=== PATIENT | female | born 1940 | race African-American/Black ===

== ENCOUNTER 2018-05-30 21:39 | Inpatient (IN) | payer MEDICARE ==
[2018-05-30 23:33] LABS: CKMB 43.9 ng/mL (0-6.6); Troponin I 2.075 ng/mL (< 0.028)
[2018-05-31] MEDS ORDERED: Enoxaparin Sodium 60 MG/0.6 ML SYRINGE ONE (00:01)
[2018-05-31] MEDS ORDERED: Enoxaparin Sodium 30 MG/0.3 ML SYRINGE ONE (00:01)
[2018-05-31] MEDS ORDERED: Nitroglycerin 0.4 MG TAB (25 Tab Bottle) SL PRN (00:45)
[2018-05-31] MEDS ORDERED: Clopidogrel Bisulfate 300 MG TAB PO SCH (00:45)
[2018-05-31] MEDS ORDERED: Acetaminophen 325 MG TAB PO PRN (00:48)
[2018-05-31] MEDS ORDERED: Bisacodyl 5 MG TAB PO PRN (00:48)
[2018-05-31] MEDS ORDERED: Ondansetron ODT 4 MG TAB PO PRN (00:48)
[2018-05-31] MEDS ORDERED: Sodium Chloride 0.9% 1,000 ML IV SCH ×2 (01:00→09:43)
[2018-05-31 02:10] VITALS: BMI 36.0
[2018-05-31] MEDS ORDERED: Morphine 2 MG/ML SYRINGE SLOW IVP PRN ×2 (02:30→09:40)
[2018-05-31] MEDS: Amiodarone HCl 450 MG, Admixture Fee 1 EACH in Dextrose 5% in Water 250 ML IVPB SCH ×2 (03:35→12:56)
[2018-05-31 04:39] LABS: #Basophils 0.1 thou/uL (0.0-0.2); #Eosinphils 0.1 thou/uL (0.0-0.7); #Lymphocytes 2.2 thou/uL (1.20-3.40); #Monocytes 0.7 thou/uL (0.11-0.59); #Neutrophils 5.7 thou/uL (1.40-6.50); %Eosinophils 1.2 % (0.0-10.0); %Lymphocytes 24.7 % (21.0-51.0); %Monocytes 7.6 % (0.0-10.0); %Neutrophils 65.5 % (42.0-75.0); Hemoglobin 12.9 g/dL (12.0-16.0); Mean Corpuscular HGB CONC 33.6 g/dL (32.0-36.0); Mean Corpuscular Hemoglobin 32.3 pg (27.0-31.0); Mean Corpuscular Volume 96.2 fL (78.0-98.0); Mean Platelet Volume 6.7 fL (7.4-10.4); Platelet Count 264 thou/uL (130-400); RBC Distribution Width 12.3 % (11.5-14.5); White Blood Cell (WBC) Count 8.7 thou/uL (4.8-10.8)
[2018-05-31 04:57] LABS: Anion Gap 14 mmol/L (10-20); BUN (Urea Nitrogen) 24 mg/dL (9.8-20.1); Calc. Creatinine Clearance 73 mL/min (70-130); Calcium 8.7 mg/dL (7.8-10.44); Carbon Dioxide 23 mmol/L (23-31); Cardiac Risk 3.4 (Less than 4.5); Chloride 108 mmol/L (98-107); Cholesterol 178 mg/dl (< 200 Desired); Estimated GFR-MDRD 71; Glucose 109 mg/dL (83-110); HDL Cholesterol 53 mg/dL (>60 Neg Risk); LDL Cholesterol, Calculated 114 mg/dL; Potassium 3.5 mmol/L (3.5-5.1); Sodium 141 mmol/L (136-145); Triglycerides 57 mg/dL (Less than 150)
[2018-05-31 05:10] LABS: Troponin I 13.641 ng/mL (< 0.028)
[2018-05-31] MEDS ORDERED: Lidocaine 1% (PF) 30 ML VIAL ONE (08:02)
[2018-05-31] MEDS: Famotidine 20 MG TAB PO SCH ×2 (08:18→22:02)
[2018-05-31] MEDS: Lisinopril 2.5 MG TAB PO SCH (08:18)
[2018-05-31] MEDS: Metoprolol Tartrate 25 MG TAB PO SCH ×2 (08:18→22:02)
[2018-05-31] MEDS: Clopidogrel Bisulfate 75 MG TAB PO SCH (08:18)
[2018-05-31] MEDS: Enoxaparin Sodium 100 MG/ML SYRINGE SC SCH ×2 (08:19→22:01)
--- NOTE | 2018-05-31 08:37 | HP ---
CHIEF COMPLAINT: Chest pain. HISTORY OF PRESENT ILLNESS: This is a 78-year-old -Vin[place]ian with past medical history of CHF, status post pacemaker, ischemic cerebrovascular accident in 06/2015, being admitted for chest pain. Per the patient, she was going to [employer] and when patient got to the parking lot and she walked from the parking lot to the [employer], which is about 50 feet. She started having chest pain. which was pressure-like squeezing in sensation, which caused the patient to have associated symptoms of shortness of breath and patient states that once she got into the [employer]ism and she was about to take her seat in the gn[employer]. She started to have some dizziness as well and she felt like her chest pain was unbearable, so at that point, 911 was called and the patient was transferred to [place]. In [place], workup was done and patient was found to have elevated troponin. Patient was then transferred to our hospital to be further evaluated. Patient denies any vomiting, palpitation, fever, chills, abdominal pain. REVIEW OF SYSTEMS: Positive for chest pain, which is localized substernal region, shortness of breath, otherwise as documented in HPI. All other systems were reviewed and are negative. PAST MEDICAL HISTORY: CHF, status post pacemaker, cerebrovascular accident in 06/2015. PAST SURGICAL HISTORY: Status post pacemaker, stent, bilateral knee surgeries, bunionectomy bilaterally. PSYCHIATRIC HISTORY: No psych history. FAMILY HISTORY: reviewed and non-contributory SOCIAL HISTORY: Patient states that she is healthy and she has lost about 75 pounds from exercising. She lives with her . Patient denies any alcohol use, any illicit drug use, and any smoking history. ALLERGIES: Patient is allergic to TETRACYCLINE. CURRENT MEDICATIONS: Patient takes Lasix 20 mg. PHYSICAL EXAMINATION: VITAL SIGNS: Blood pressure is 106/66, pulse of 81, respiratory rate of 23, O2 sat of 98 on room air. GENERAL: Patient is alert, awake, oriented x3, not in acute distress. Patient is speaking in full sentences. HEENT: Normocephalic, atraumatic. Pupils are equally round and react to light. Extraocular movements are intact. No scleral icterus. No conjunctival pallor. Mucous membranes are moist. NECK: No JVDs. Full range of motion. Neck is supple. No tracheal deviation. LUNGS: Clear to auscultation bilaterally. No wheezing, no rales, no rhonchi is appreciated. CARDIOVASCULAR: Positive S1, S2, regular rate and rhythm. No murmurs, no gallops or rubs appreciated. ABDOMEN: Soft, nontender, nondistended, positive bowel sounds in all quadrants. No palpable masses. EXTREMITIES: Upper extremity strength 5/5 and lower extremity strength. No edema noted in the upper or lower extremities. Good pulses bilaterally in the upper and lower extremities. NEUROLOGIC: Cranial nerves II-XII grossly intact. No neurologic deficit noted. SKIN: Warm, dry, and intact. EKG showed normal sinus rhythm with a rate of 79. Patient was started on Lovenox 1 mg per kg. LABORATORY DATA: WBC is 8.7, hemoglobin is 12.9, hematocrit is 38.5, platelet count is 264. Sodium is 141, potassium is 3.5, chloride is 108, carbon dioxide of 23, anion gap of 14, BUN is 24, creatinine is 0.93, glucose is 109, CK-MB is 43.9. Troponins x3, first set is 2.075, second set is 7.570, third set is 13.641 in our hospital. Triglycerides 57, cholesterol 178, LDL is 114, HDL cholesterol is 63, heart disease risk ratio is 3.4. TSH is 4.2. Chest x-ray showed impression of cardiac silhouette that is magnified and enlarged. There is a pulmonary vasculature that is engorged with mild bilateral perihilar infiltrates mediastinum midline with a single lead left subclavian cardiac defibrillator. ASSESSMENT AND PLAN: A 78-year-old female with past medical history significant for congestive heart failure, status post pacemaker due to reduced ejection fraction, now being admitted for: 1. Chest pain, being admitted for chest pain due to Non-ST elevation myocardial infarction. Patient's troponin is currently elevated. At this point , patient has been started on aspirin, Plavix, beta blockers, full anticoagulation. Cardiology has been consulted. Patient has been made n.p.o. Patient will benefit from cardiac catheterization. At this time, we will leave management and decisions to Cardiology, we will follow up with their recommendations. Patient has been admitted to the [facility] to be monitored very closely. 2. Arrhythmias. At this time, patient is having runs of ventricular tachycardia. Cardiology has been made aware, patient has been started on amiodarone drip. We will continue to monitor the patient. 3. History of chronic systolic heart failure. We will monitor the patient closely. We will continue patient on her current management. Cardiology is on consult. We will follow up with Cardiology. 4. Deep venous thrombosis and gastrointestinal prophylaxis. We will continue Lovenox and patient is n.p.o. at this time. We will do Pepcid. MTDD
[2018-05-31] MEDS ORDERED: Potassium Chloride 20 MEQ TAB PO SCH (08:45)
[2018-05-31] MEDS ORDERED: Fentanyl 100 MCG/2 ML VIAL ONE (08:50)
[2018-05-31] MEDS ORDERED: Midazolam HCl 2 mg/2 ml Vial ONE (08:50)
--- NOTE | 2018-05-31 08:53 | CON ---
DATE OF CONSULTATION: 05/31/2018 CHIEF COMPLAINT: Chest pain. HISTORY OF PRESENT ILLNESS: Ms. Joe is a very pleasant 78-year-old -Bel[place] female who c omes to the hospital for chest pain. She was at [employer] yesterday, she felt really short-winded and h ad chest tightness, her diaphoretic tightness would not go away after sublingual nitro was taken, so she decided to come in for evaluation. She was pain free after she received a dose of morphine and n itro paste was placed on her. She had troponins drawn and they have been elevated as high as 13 now, she is pain free at the time. PAST MEDICAL HISTORY: 1. History of nonischemic cardiomyopathy with an EF of 20% in the past. 2. Status post AICD placement. 3. Status post coronary artery disease, this was diagnosed after her reduced EF. She had stent to h er LAD, which was last imaged in 2006 that was widely patent. 4. History of cerebrovascular accident in the past on chronic anticoagulation for some time, none fo r few months. 5. Obstructive sleep apnea. 6. Hypertension. 7. Hyperlipidemia. 8. Frequent PVCs. PAST SURGICAL HISTORY: 1. AICD placement. 2. Stent placement in the LAD. 3. Total knee replacement on the left and the right. 4. Lap band in 2006. OUTPATIENT MEDICATIONS: None. The patient has refused to take any medications and actually the last medicine she was on Coumadin that she has stopped this one as well. ALLERGIES: 1. VENLAFAXINE. 2. ALPRAZOLAM. 3. TETRACYCLINE. FAMILY HISTORY: Noncontributory. SOCIAL HISTORY: No alcohol, tobacco, or drugs. REVIEW OF SYSTEMS: A 12-point review of systems was done and is all negative unless stated in the hi story of present illness. PHYSICAL EXAMINATION: VITAL SIGNS: Temperature 97.1, pulse 77, respiration rate 16, satting 98% on room air, blood pressur e 153/90. GENERAL: Awake, alert, oriented x3, in no distress. HEENT: Normocephalic, atraumatic. NECK: Supple. LUNGS: Lungs are clear. CARDIOVASCULAR: S1, S2, no S3, S4, no murmurs. ABDOMEN: Soft, positive bowel sounds. EXTREMITIES: No edema. SKIN: Warm and dry. LABORATORY WORK: Reviewed. CBC with a white count of 8.7, hemoglobin 12.9, hematocrit of 38.5, plat elet count 264. Chemistry is unremarkable. Creatinine is 0.93 with a BUN of 24. Troponin went from 2 to 7.5 now 13.6. CK-MB was 43 on admission. Triglycerides of 57, cholesterol total 178, LDL of 1 14, HDL of 53. TSH was normal. EKG was reviewed. Chest x-ray was reviewed, mild CHF. She received Lasix yesterday. ASSESSMENT AND PLAN: 1. Non-ST elevation myocardial infarction. 2. Acute on chronic systolic heart failure. 3. Medication noncompliance. PLAN: I spoke with her at length about how to proceed from here if we do an invasive approach. She will require dual antiplatelet therapy for minimum of one month to a year and she has to be compliant with this. She has taken medications in the past as just that she would prefer just doing herbal med ications. I explained to her that if we were to do a heart catheterization and put in a stent, she w ill need to be at least on Plavix and aspirin. If she refused everything else, but those 2 medicines cannot come off. She tells me that she discussed it with her in front of me and they have d ecided that they do want to proceed invasively. She has had stents before. She has been through thi s in the past. She has been on antiplatelet therapies in the past and tolerated them well. She woul d like to have a drug-coated stent and we will take her Plavix and aspirin for a whole year. She und erstands and verbalized understanding of the fact that if she stopped her antiplatelet therapy, she c an from this, but she can have severe disability with a repeat heart attack and she may not come out doing too well after that. She understands, verbalized understanding of this. We will proceed w ith heart catheterization. She knows that I have explained to her the risks and benefits of the proc edures was including, but not limited to stroke, OR, , bleeding, need for blood transfusion, ferrari b loss, organ loss, stent thrombosis in case medications were to be stopped. Patient understands, ve rbalized understanding of this, agrees to proceed. Further recommendation per results of coronary an giogram.
[2018-05-31] MEDS ORDERED: Aspirin 325 mg Enteric Coated Tablet PO SCH (09:00)
[2018-05-31] MEDS ORDERED: Heparin 10,000 UNITS/1 ML VIAL ONE (09:24)
[2018-05-31] MEDS ORDERED: Clopidogrel Bisulfate 300 MG TAB ONE ×2 (09:25→09:37)
--- NOTE | 2018-05-31 11:22 | CON ---
DATE OF CONSULTATION: 05/31/2018 SERVICE: Pulmonary Medicine REASON FOR CONSULTATION: IMCU patient. HISTORY OF PRESENT ILLNESS: The patient is a 78-year-old female with past medical history significant for coronary artery disease. She presented to the hospital with palpitations, and discomfort in the chest. EKG did not demonstrate any significant ST elevation. That being said, troponins overnight have increased significantly. Whenever the patient is minimally active, she becomes pale and a little diaphoretic. She is being taken down to the wood and wood products labourer this morning. She denies any current shortness of breath, cough, fevers, chills , dysuria, or abdominal discomfort. At rest, the chest pain improved significantly. PAST MEDICAL HISTORY: 1. Nonischemic cardiomyopathy. 2. Coronary artery disease. 3. History of cerebrovascular accident. 4. Hypertension. 5. Dyslipidemia. 6. Obstructive sleep apnea. PAST SURGICAL HISTORY: 1. PCI to the LAD. 2. AICD. 3. Total knee replacement, bilateral. 4. Lap band surgery in 2006. SOCIAL HISTORY: Negative for significant alcohol, tobacco or illicit drug use. She has no exposure to chemicals, asbestos or tuberculosis. FAMILY HISTORY: Noncontributory. ALLERGIES: CIPRO, TETRACYCLINE. MEDICATIONS: List of the patient's inpatient medications were reviewed. No specific updates were made at this time. REVIEW OF SYSTEMS: General, head, ears, eyes, nose, throat, cardiovascular, respiratory, GI, , musculoskeletal, neurologic and skin is negative except as mentioned in the HPI. PHYSICAL EXAMINATION: VITAL SIGNS: Afebrile, pulse 77, blood pressure 153/90, respirations 16, saturation 98% on room air. GENERAL: The patient is awake, alert, in no apparent distress. LUNGS: Decent air entry. There are some dependent crackles present. No prolonged expiratory phase or wheezing is appreciated. HEART: Normal rate, regular. ABDOMEN: Soft, nontender, nondistended. Bowel sounds are positive. MUSCULOSKELETAL: No cyanosis or clubbing. There is no pitting in the bilateral lower extremities. NEUROLOGIC: Grossly nonfocal. LABORATORY DATA: WBC 8.7, hemoglobin 12.9, platelets 264,000. Basic metabolic profile is completely unremarkable except for potassium of 3.5. Troponin has gone from 2.07 up to 13.6. TSH falls within the normal limits. IMAGIGN: Chest x-ray demonstrates pulmonary vascular congestion, and enlarged cardiac silhouette. No overt consolidating changes are noted. ASSESSMENT: 1. Non-ST elevation myocardial infarction. 2. Acute on chronic systolic heart failure. DISCUSSION AND PLAN: The patient is going for a cardiac catheterization today. If culprit lesions is identified, hopefully will be able to intervene on it. She will remain in the IMCU until we have definitive plan in place moving forward. Pulmonary Critical Care will continue to follow in this location. 70 minutes have been devoted to this patient in various activities. I personally reviewed all imaging studies and laboratory data noted within this document. For fifty percent of this time, I was interacting with the patient at the bedside or coordinating care with the care team. For the remainder of the time I was immediately available to the patient in the hospital unit. MARLY
[2018-05-31] MEDS ORDERED: Iopamidol 370 76% 50 ML VIAL FS ONE (15:12)
[2018-05-31] MEDS ORDERED: Iopamidol 370 76% 100 ML VIAL ONE (15:12)
--- NOTE | 2018-05-31 15:56 | PDOC.PN ---
- Subjective Encounter Start Date: 05/31/18 Encounter Start Time: 11:40 -: old records requested/rev Pt seen and examined, chart reviewed in its entirety. This is my first visit with this patient. follow up for NSTEMI, S/P cath this am No F/C, no N/V/D/C, no CP, no SOB. Cath showed 100% LAD lesion, now with 2 stents, 100% open All systems reviewed and neg x as per HPI - Objective Resuscitation Status: Resuscitation Status FULL:Full Resuscitation MAR Reviewed: Yes Vital Signs & Weight: Vital Signs (12 hours) Temp Pulse Resp BP Pulse Ox 05/31/18 11:06 97.9 F 64 19 94/58 L 98 05/31/18 08:18 77 05/31/18 07:26 97.1 F L 77 16 153/90 H 98 05/31/18 04:21 98.5 F 86 21 H 122/84 97 Weight Weight 203 lb 9.6 oz I&O: 05/30/18 05/31/18 06/01/18 06:59 06:59 06:59 Intake Total 263 Balance 263 Result Diagrams: 05/31/18 04:28 05/31/18 04:28 Radiology Reviewed by me: Yes EKG Reviewed by me: Yes Dx/Plan (1) NSTEMI (non-ST elevated myocardial infarction) Code(s): I21.4 - NON-ST ELEVATION (NSTEMI) MYOCARDIAL INFARCTION Status: Acute (2) Chronic CHF Code(s): I50.9 - HEART FAILURE, UNSPECIFIED Status: Acute (3) CVD (cerebrovascular disease) Code(s): I67.9 - CEREBROVASCULAR DISEASE, UNSPECIFIED Status: Acute (4) Normally functioning cardiac pacemaker present Code(s): Z95.0 - PRESENCE OF CARDIAC PACEMAKER Status: Acute - Plan * .
[2018-05-31] MEDS: Atorvastatin Calcium 40 MG TAB PO SCH (22:02)
[2018-06-01 03:48] LABS: #Basophils 0.1 thou/uL (0.0-0.2); #Monocytes 1.2 thou/uL (0.11-0.59); #Neutrophils 11.2 thou/uL (1.40-6.50); %Basophils 0.4 % (0.0-1.0); %Eosinophils 0.2 % (0.0-10.0); %Lymphocytes 13.6 % (21.0-51.0); %Monocytes 8.1 % (0.0-10.0); %Neutrophils 77.7 % (42.0-75.0); Hemoglobin 12.9 g/dL (12.0-16.0); Mean Corpuscular HGB CONC 33.8 g/dL (32.0-36.0); Mean Corpuscular Hemoglobin 33.1 pg (27.0-31.0); Mean Platelet Volume 7.1 fL (7.4-10.4); Platelet Count 271 thou/uL (130-400); RBC Distribution Width 12.5 % (11.5-14.5); Red Blood Cell (RBC) Count 3.89 mill/uL (4.20-5.40); White Blood Cell (WBC) Count 14.4 thou/uL (4.8-10.8)
[2018-06-01 04:13] LABS: ALT (SGPT) 35 U/L (8-55); AST (SGOT) 176 U/L (5-34); Albumin 3.4 g/dL (3.4-4.8); Alkaline Phosphatase 63 U/L (40-150); Anion Gap 12 mmol/L (10-20); BUN (Urea Nitrogen) 15 mg/dL (9.8-20.1); Bilirubin, Total 1.1 mg/dL (0.2-1.2); Calc. Creatinine Clearance 80 mL/min (70-130); Calcium 8.3 mg/dL (7.8-10.44); Carbon Dioxide 18 mmol/L (23-31); Chloride 109 mmol/L (98-107); Estimated GFR-MDRD 79; Globulin 3.1 g/dL (2.4-3.5); Glucose 115 mg/dL (83-110); Magnesium 1.9 mg/dL (1.6-2.6); Potassium 4.4 mmol/L (3.5-5.1); Protein, Total 6.5 g/dL (6.0-8.3); Sodium 135 mmol/L (136-145)
[2018-06-01] MEDS: Amiodarone HCl 450 MG, Admixture Fee 1 EACH in Dextrose 5% in Water 250 ML IVPB SCH (04:32)
[2018-06-01] MEDS: Enoxaparin Sodium 100 MG/ML SYRINGE SC SCH ×2 (10:17→21:57)
[2018-06-01] MEDS: Metoprolol Tartrate 25 MG TAB PO SCH ×2 (10:18→21:54)
[2018-06-01] MEDS: Famotidine 20 MG TAB PO SCH ×2 (10:25→21:56)
[2018-06-01] MEDS: Clopidogrel Bisulfate 75 MG TAB PO SCH (10:25)
[2018-06-01] MEDS: Lisinopril 2.5 MG TAB PO SCH (10:25)
[2018-06-01] MEDS: Ondansetron PF 4 MG/2 ML Vial IVP PRN ×2 (14:41→19:58)
--- NOTE | 2018-06-01 15:30 | PRG ---
DATE OF SERVICE: 06/01/2018 SERVICE: Pulmonary Medicine. INTERVAL HISTORY: The patient is doing really well from a respiratory standpoint. He denies any current chest pain, nausea, vomiting, fevers or chills. Otherwise, she is essentially returned to her usual state of health. There has been no specific change to her condition. Nursing reports no overnight events. OBJECTIVE: VITAL SIGNS: Afebrile, pulse 69, blood pressure 107/69, respirations 18, saturation 99% on room air. GENERAL: The patient is awake, alert, no apparent distress. LUNGS: Excellent air entry. There is no prolonged expiratory phase, wheezing, rhonchi, or crackles present. HEART: Normal rate, regular. ABDOMEN: Soft, nontender, nondistended. Bowel sounds are positive. MUSCULOSKELETAL: No cyanosis or clubbing. No pitting in the bilateral lower extremities. NEUROLOGIC: Grossly nonfocal. LABORATORY DATA: WBC 14.4, hemoglobin 12.9, platelets 271,000. Sodium 135, chloride 109, bicarbonate 18. Basic metabolic profile is otherwise unremarkable. Liver function studies are normal. IMAGING: Echocardiogram demonstrates an ejection fraction of 15%-20% with ____ _ diastolic dysfunction, enlarged left atrium, and severe mitral regurgitation. ASSESSMENT: 1. Non-ST elevation myocardial infarction. 2. Acute on chronic systolic, diastolic, and valvular (severe MR) heart failure. 3. Coronary artery disease status post PCI with FLACO to LAD. DISCUSSION AND PLAN: The patient can be transitioned out of the IMCU to the telemetry unit as she is completely asymptomatic. When she lands on the floor, she will have no further requirements for inpatient Pulmonary or Critical Care opinion, and we will sign off. MARLY
--- NOTE | 2018-06-01 15:56 | PDOC.CTH ---
<Lili Rutherford - Last Filed: 06/01/18 16:18> Cardiology Progress Note - Subjective The pt seen and examined. No overnight events. No cardiac complaints. Amiodarone IV is on hold due to complaining of nausea possible 2/2 from Amiodarone. - Objective Vital Signs Temp Pulse Pulse Pulse Resp BP BP 06/01/18 11:17 97.2 F L 72 18 06/01/18 10:47 68 72 112/70 120/82 06/01/18 08:08 97.8 F 69 25 H 06/01/18 08:00 06/01/18 06:35 06/01/18 03:55 97.5 F L 64 18 BP Pulse Ox Pulse Ox Pulse Ox 06/01/18 11:17 120/82 99 06/01/18 10:47 95 98 06/01/18 08:08 107/69 98 06/01/18 08:00 98 06/01/18 06:35 95 06/01/18 03:55 105/69 95 Weight 203 lb 9.6 oz 05/31/18 06/01/18 06/02/18 06:59 06:59 06:59 Intake Total 263 1682 Balance 263 1682 - Physical Examination General/Neuro: alert & oriented x3 Neck: no JVD present Lungs: CTA Heart: RRR Abdomen: soft Extremities: other: (No edema) - Telemetry Telemetry Rhythm: SR - Labs Result Diagrams: 06/01/18 03:18 06/01/18 03:18 Troponin/CKMB CK-MB (CK-2) 43.9 ng/mL (0-6.6) H* 05/30/18 22:52 Troponin I 13.641 ng/mL (< 0.028) H* 05/31/18 04:28 - Assessment/Plan 1. NSTEMI with FLACO stent in mid RCA - On BBlocker,ANILA, Statin, Plavix, and ASA 81mg. 2. New-onset Afib - Coverted to SR since she was tx to IMCU on 05/31/18. Change Amiodarone to PO. 3. Acute on Chronic combined HF - stable with RA; 4. Ischemic CMY with hx of AICD placement 5. HTN - stable with current meds 6. Hyperlipidemia - on Statin 7. hx of CVA - 8. Sleep Apnea - MAR reviewed * If she is stable overnight, the pt may d/c home tomorrow. * Since her Afib was very short time, she will be on Plavix and ASA, but no OAC at this time. Review of Systems - Review of Systems Constitutional: reports: no symptoms reported EENTM: reports: no symptoms reported Respiratory: reports: no symptoms reported Cardiac (ROS): reports: no symptoms reported ABD/GI: reports: no symptoms reported : reports: no symptoms reported Musculoskeletal: reports: no symptoms reported <Betzaida Navas - Last Filed: 06/01/18 18:03> Cardiology Progress Note - Objective Vital Signs Temp Pulse Pulse Pulse Resp BP BP 06/01/18 16:10 98.0 F 80 20 06/01/18 11:17 97.2 F L 72 18 06/01/18 10:47 68 72 112/70 120/82 06/01/18 08:08 97.8 F 69 25 H 06/01/18 08:00 06/01/18 06:35 BP Pulse Ox Pulse Ox Pulse Ox 06/01/18 16:10 104/76 99 06/01/18 11:17 120/82 99 06/01/18 10:47 95 98 06/01/18 08:08 107/69 98 06/01/18 08:00 98 06/01/18 06:35 95 Weight 203 lb 9.6 oz 05/31/18 06/01/18 06/02/18 06:59 06:59 06:59 Intake Total 263 1682 Balance 263 1682 - Labs Result Diagrams: 06/01/18 03:18 06/01/18 03:18 Troponin/CKMB CK-MB (CK-2) 43.9 ng/mL (0-6.6) H* 05/30/18 22:52 Troponin I 13.641 ng/mL (< 0.028) H* 05/31/18 04:28 - Assessment/Plan PT. SEEN AND EVAL. BY ME. SHE HAS LESS NAUSEA AFTER THE ZOFRAN. pOSSIBLY DUE TO THE AMIODARONE. sHE IS MAINTAINING sinus rhythm. Start po amio. i agree with the A/P by the [facility]. Left arm erythema after infikltration of amiodarone. if stable plan for d/c tomorrow or monday. RRR. Chest clear.
[2018-06-01] MEDS: Amiodarone 200 MG TAB PO SCH (21:55)
[2018-06-01] MEDS: Atorvastatin Calcium 40 MG TAB PO SCH (21:56)
[2018-06-02 04:37] LABS: Hemoglobin 13.6 g/dL (12.0-16.0); Platelet Count 298 thou/uL (130-400)
[2018-06-02] MEDS ORDERED: Temazepam 15 MG CAP PO PRN (05:07)
[2018-06-02] MEDS ORDERED: Temazepam 15 MG CAP PO SCH (05:15)
--- NOTE | 2018-06-02 07:09 | PDOC.EVN ---
Event Note - Event Note Event Note: I was called to evaluate patient who is having dyspnea. Patient has been admitted for NSTEMI. On evaluation patient is lying in bed sating 98 on NC but appears to be very anxious. Patient states that she is restless and cannot sleep. Resp: CTA bilaterally, no wheezing or rales. Chest: WNL Vital signs: WNL Assessment and plan: Dyspnea 2/2 anxiety. I have ordered restoril to help patient sleep. will continue to monitor the patient closely.
--- NOTE | 2018-06-02 08:22 | EKG ---
Test Reason : Blood Pressure : / mmHG Vent. Rate : 090 BPM Atrial Rate : 090 BPM P-R Int : 150 ms QRS Dur : 094 ms QT Int : 356 ms P-R-T Axes : 062 -01 083 degrees QTc Int : 435 ms Normal sinus rhythm Cannot rule out Anterior infarct , age undetermined Abnormal ECG No previous ECGs available Confirmed by KRIS BAÑUELOS ([id number]) on 06/02/2018 8:22:39 AM Referred By: Confirmed By:KRIS BAÑUELOS
[2018-06-02] MEDS: Amiodarone 200 MG TAB PO SCH ×2 (09:11→20:55)
[2018-06-02] MEDS: Clopidogrel Bisulfate 75 MG TAB PO SCH (09:11)
[2018-06-02] MEDS: Enoxaparin Sodium 100 MG/ML SYRINGE SC SCH ×2 (09:12→20:54)
[2018-06-02] MEDS: Metoprolol Tartrate 25 MG TAB PO SCH ×2 (09:14→20:55)
[2018-06-02] MEDS: Famotidine 20 MG TAB PO SCH ×2 (09:14→20:56)
[2018-06-02] MEDS: Lisinopril 2.5 MG TAB PO SCH (09:15)
--- NOTE | 2018-06-02 11:16 | PDOC.PN ---
- Subjective Encounter Start Date: 06/01/18 Encounter Start Time: 09:40 Folllow up for NSTEMUI, 100% LAD occlusion, S/P PTCA and PCI with 2 FLACO Pt did well overnight, no F/c, no N/V/D/C. Pts daughter from [place] in room, aobut to head home. No CP or SOB, getting up around the room, no orthopnea or SOLORZANO all systems reviewed and neg x as above - Objective Resuscitation Status: Resuscitation Status FULL:Full Resuscitation MAR Reviewed: Yes Vital Signs & Weight: Vital Signs (12 hours) Temp Pulse Resp BP Pulse Ox 06/02/18 07:46 97.3 F L 70 25 H 107/58 L 100 06/02/18 04:39 97.0 F L 75 17 115/78 100 06/02/18 00:28 97.1 F L 88 18 107/62 96 Weight Weight 203 lb 9.6 oz I&O: 06/01/18 06/02/18 06/03/18 06:59 06:59 06:59 Intake Total 1682 350 Balance 1682 350 Result Diagrams: 06/02/18 04:09 06/02/18 04:09 Radiology Reviewed by me: Yes Phys Exam - Physical Examination Constitutional: NAD HEENT: PERRLA, moist MMs, sclera anicteric, oral pharynx no lesions Neck: no nodes, no JVD, supple, full ROM Respiratory: no wheezing, no rales, no rhonchi, clear to auscultation bilateral Cardiovascular: RRR, no significant murmur, no rub Gastrointestinal: soft, non-tender, no distention, positive bowel sounds Musculoskeletal: no edema Neurological: non-focal, normal sensation, moves all 4 limbs Lymphatic: no nodes Psychiatric: normal affect, A&O x 3 Skin: no rash, normal turgor, cap refill <2 seconds Dx/Plan (1) NSTEMI (non-ST elevated myocardial infarction) Code(s): I21.4 - NON-ST ELEVATION (NSTEMI) MYOCARDIAL INFARCTION Status: Acute (2) Chronic CHF Code(s): I50.9 - HEART FAILURE, UNSPECIFIED Status: Chronic Qualifiers: Heart failure type: combined systolic and diastolic Qualified Code(s): I50.42 - Chronic combined systolic (congestive) and diastolic (congestive) heart failure (3) CVD (cerebrovascular disease) Code(s): I67.9 - CEREBROVASCULAR DISEASE, UNSPECIFIED Status: Chronic (4) Normally functioning cardiac pacemaker present Code(s): Z95.0 - PRESENCE OF CARDIAC PACEMAKER Status: Chronic (5) Ischemic cardiomyopathy Code(s): I25.5 - ISCHEMIC CARDIOMYOPATHY Status: Acute Comment: EF 10-15% now, AICD already in place - Plan cont current plan of care, out of bed/ambulate * . follow up on cardiology recs
[2018-06-02] MEDS ORDERED: Fleet Enema 133 ML BOT PR SCH (16:00)
[2018-06-02] MEDS: Polyethylene Glycol 3350 17 GM Packet PO SCH (20:55)
[2018-06-02] MEDS: Atorvastatin Calcium 40 MG TAB PO SCH (20:56)
[2018-06-03] MEDS ORDERED: ALPRAZolam 0.25 MG TAB PO SCH (00:45)
[2018-06-03] MEDS ORDERED: Melatonin 3 MG TAB PO SCH (00:45)
[2018-06-03] MEDS: Clopidogrel Bisulfate 75 MG TAB PO SCH (08:18)
[2018-06-03] MEDS: Amiodarone 200 MG TAB PO SCH ×2 (08:18→21:21)
[2018-06-03] MEDS: Enoxaparin Sodium 100 MG/ML SYRINGE SC SCH ×2 (08:18→21:24)
[2018-06-03] MEDS: Lisinopril 2.5 MG TAB PO SCH (08:20)
[2018-06-03] MEDS: Metoprolol Tartrate 25 MG TAB PO SCH ×2 (08:20→21:24)
[2018-06-03] MEDS: Famotidine 20 MG TAB PO SCH ×2 (08:20→21:24)
[2018-06-03] MEDS: Polyethylene Glycol 3350 17 GM Packet PO SCH ×2 (08:21→21:25)
[2018-06-03 11:25] LABS: Anion Gap 13 mmol/L (10-20); BUN (Urea Nitrogen) 29 mg/dL (9.8-20.1); Calc. Creatinine Clearance 53 mL/min (70-130); Calcium 8.5 mg/dL (7.8-10.44); Carbon Dioxide 19 mmol/L (23-31); Chloride 106 mmol/L (98-107); Estimated GFR-MDRD 48; Glucose 172 mg/dL (83-110); Potassium 4.1 mmol/L (3.5-5.1); Sodium 134 mmol/L (136-145)
--- NOTE | 2018-06-03 14:16 | PRG ---
DATE OF SERVICE: 06/03/2018 SUBJECTIVE: She is doing better. She is less short of breath. OBJECTIVE: VITAL SIGNS: Sats on room air, respiration 16, temperature 97, blood pressure 108/69. CHEST: No wheezing and no crackles. CARDIAC: Normal S1, S2, no gallops. LABORATORY DATA: Creatinine 1.2. ASSESSMENT: Congestive heart failure and azotemia. PLAN: Continue cardiac care. Pulmonary will follow at a distance.
--- NOTE | 2018-06-03 14:24 | PDOC.PN ---
- Subjective Encounter Start Date: 06/03/18 Encounter Start Time: 12:20 pt not feeling well. another panic attack overnight. no BM yet, no F/C, no n/V /d/c All systems reviewed and neg x as above pt [facility] - Objective Resuscitation Status: Resuscitation Status FULL:Full Resuscitation MAR Reviewed: Yes Vital Signs & Weight: Vital Signs (12 hours) Temp Pulse Resp BP Pulse Ox 06/03/18 11:34 97.4 F L 67 16 108/69 95 06/03/18 08:20 64 06/03/18 08:13 98.4 F 64 16 112/58 L 94 L 06/03/18 05:34 94 L 06/03/18 03:06 97.8 F 61 20 105/58 L 94 L Weight Weight 207 lb I&O: 06/02/18 06/03/18 06/04/18 06:59 06:59 06:59 Intake Total 350 480 Balance 350 480 Result Diagrams: 06/02/18 04:09 06/03/18 10:53 Phys Exam - Physical Examination Constitutional: NAD HEENT: PERRLA, moist MMs, sclera anicteric, oral pharynx no lesions Neck: no nodes, no JVD, supple, full ROM Respiratory: no wheezing, no rales, no rhonchi, clear to auscultation bilateral Cardiovascular: RRR, no significant murmur Gastrointestinal: soft, non-tender, no distention, positive bowel sounds Musculoskeletal: no edema Neurological: non-focal, normal sensation, moves all 4 limbs Lymphatic: no nodes Psychiatric: normal affect, A&O x 3 Skin: no rash, normal turgor, cap refill <2 seconds Dx/Plan (1) NSTEMI (non-ST elevated myocardial infarction) Code(s): I21.4 - NON-ST ELEVATION (NSTEMI) MYOCARDIAL INFARCTION Status: Resolved (2) Chronic CHF Code(s): I50.9 - HEART FAILURE, UNSPECIFIED Status: Chronic Qualifiers: Heart failure type: combined systolic and diastolic Qualified Code(s): I50.42 - Chronic combined systolic (congestive) and diastolic (congestive) heart failure (3) CVD (cerebrovascular disease) Code(s): I67.9 - CEREBROVASCULAR DISEASE, UNSPECIFIED Status: Chronic (4) Normally functioning cardiac pacemaker present Code(s): Z95.0 - PRESENCE OF CARDIAC PACEMAKER Status: Chronic (5) Ischemic cardiomyopathy Code(s): I25.5 - ISCHEMIC CARDIOMYOPATHY Status: Chronic Comment: EF 10-15% now, AICD already in place - Plan cont current plan of care, PT/OT, health care social worker, out of bed/ambulate * . miralax BID until she has a BM, hopefully ready for tomorrow discharge
--- NOTE | 2018-06-03 15:10 | PDOC.CTH ---
<Lili Rutherford - Last Filed: 06/03/18 15:08> Cardiology Progress Note - Subjective The pt seen and examined. No overnight events. She complains of worsening of SOB, fatigue. She also complains of anxiety last night. - Objective Vital Signs Temp Pulse Resp BP Pulse Ox 06/03/18 11:34 97.4 F L 67 16 108/69 95 06/03/18 08:20 64 06/03/18 08:13 98.4 F 64 16 112/58 L 94 L 06/03/18 05:34 94 L Weight 207 lb 06/02/18 06/03/18 06/04/18 06:59 06:59 06:59 Intake Total 350 480 Balance 350 480 - Physical Examination General/Neuro: alert & oriented x3 Neck: no JVD present Lungs: CTA (diminished at bases) Heart: RRR Abdomen: soft Extremities: other: (No edema) - Telemetry Telemetry Rhythm: SR 60s - Labs Result Diagrams: 06/02/18 04:09 06/03/18 10:53 Troponin/CKMB CK-MB (CK-2) 43.9 ng/mL (0-6.6) H* 05/30/18 22:52 Troponin I 13.641 ng/mL (< 0.028) H* 05/31/18 04:28 - Assessment/Plan 1. NSTEMI with FLACO stent in mid RCA on 05/31/18 - On BBlocker, ANILA, Statin, Plavix, and ASA 81mg. 2. New-onset Afib - Converted to SR since she was tx to IMCU on 05/31/18. Stop Amiodarone PO due to nausea, fatigue and SOB possible 2/2 Amiodarone. 3. Acute on Chronic combined HF - stable with RA; Lasix 20mg IV x 1 today and resume lasix 20mg PO qd from tomorrow. 4. Ischemic CMY with hx of AICD placement 5. HTN - stable with current meds 6. Hyperlipidemia - on Statin 7. hx of CVA - 8. Sleep Apnea - MAR reviewed * Since her Afib was very short time, she will be on Plavix and ASA, but no OAC at this time. Review of Systems - Review of Systems Constitutional: reports: weakness EENTM: reports: no symptoms reported Respiratory: reports: no symptoms reported Cardiac (ROS): reports: no symptoms reported ABD/GI: reports: no symptoms reported : reports: no symptoms reported Musculoskeletal: reports: no symptoms reported Skin: reports: no symptoms reported <Betzaida Navas - Last Filed: 06/03/18 22:13> Cardiology Progress Note - Objective Vital Signs Temp Pulse Resp BP Pulse Ox 06/03/18 20:32 99 06/03/18 20:31 98 F 63 16 118/60 99 06/03/18 16:05 97.1 F L 76 18 105/67 99 06/03/18 11:34 97.4 F L 67 16 108/69 95 Weight 207 lb 06/02/18 06/03/18 06/04/18 06:59 06:59 06:59 Intake Total 350 480 720 Balance 350 480 720 - Labs Result Diagrams: 06/02/18 04:09 06/03/18 10:53 Troponin/CKMB CK-MB (CK-2) 43.9 ng/mL (0-6.6) H* 05/30/18 22:52 Troponin I 13.641 ng/mL (< 0.028) H* 05/31/18 04:28 - Assessment/Plan Pt. seen and evaluated by me. I agree with the A/P by the [employer]AURANT MANAGER. We have discussed the pt. and the plan.Chest clear RRR.
[2018-06-03] MEDS ORDERED: Furosemide 20 MG/2 ML VIAL SLOW IVP SCH (15:15)
[2018-06-03] MEDS: Atorvastatin Calcium 40 MG TAB PO SCH (21:23)
[2018-06-04 05:30] LABS: Platelet Count 255 thou/uL (130-400)
--- NOTE | 2018-06-04 07:37 | PRG ---
DATE OF SERVICE: 06/02/2018 SUBJECTIVE: She is doing much better. She is less short of breath, less coughing and wheezing. OBJECTIVE: VITAL SIGNS: Sats are 99% on room air, respiration 25, temperature 97, blood pressure 107/58. CHEST: No wheezing, no crackle. CARDIAC: Normal S1-S2. No gallops. ABDOMEN: Soft. No masses. IMPRESSION: 1. Congestive cardiomyopathy. 2. Respiratory failure, improved. 3. Mild azotemia. PLAN: Patient can be transitioned out of the MICU. Pulmonary will follow at a distance.
[2018-06-04] MEDS ORDERED: Furosemide 20 MG TAB PO SCH (09:00)
[2018-06-04] MEDS: Clopidogrel Bisulfate 75 MG TAB PO SCH (10:07)
[2018-06-04] MEDS: Metoprolol Tartrate 25 MG TAB PO SCH (10:07)
[2018-06-04] MEDS: Famotidine 20 MG TAB PO SCH (10:07)
[2018-06-04] MEDS: Enoxaparin Sodium 100 MG/ML SYRINGE SC SCH (10:08)
[2018-06-04] MEDS: Lisinopril 2.5 MG TAB PO SCH (10:08)
[2018-06-04] MEDS: Polyethylene Glycol 3350 17 GM Packet PO SCH (10:09)
[2018-06-04] MEDS: Amiodarone 200 MG TAB PO SCH (10:58)
--- NOTE | 2018-06-04 12:30 | PDOC.CTH ---
Cardiology Progress Note - Subjective She is doing well. She continues to refuse all medications and even lasix she only wants is as needed and does not want the daily dose scheduled. She is willing to take the Plavix for the next year. - Objective Vital Signs Temp Pulse Resp BP BP Pulse Ox 06/04/18 10:08 70 06/04/18 09:45 97.9 F 67 20 113/87 96 06/04/18 05:00 100 06/04/18 04:40 97.4 F L 70 16 108/67 100 Weight 204 lb 6 oz 06/03/18 06/04/18 06/05/18 06:59 06:59 06:59 Intake Total 480 720 360 Balance 480 720 360 - Physical Examination General/Neuro: alert & oriented x3, NAD Neck: no JVD present Lungs: CTA, unlabored respirations Heart: RRR Abdomen: NT/ND Extremities: other: (no edema) - Telemetry Telemetry Rhythm: NSR - Labs Result Diagrams: 06/04/18 04:35 06/04/18 04:35 Troponin/CKMB CK-MB (CK-2) 43.9 ng/mL (0-6.6) H* 05/30/18 22:52 Troponin I 13.641 ng/mL (< 0.028) H* 05/31/18 04:28 - Assessment/Plan 1. NSTEMI 2. S/P FLACO to LD. 3. Medication non compliance. 4. Ischemic CM, EF at 15-20% 5. Presence of an AICD. 6. Proxysmal afib PLAN: - Continue Plavix and [id number] daily which she is willing to take and she and her fully understand that not taking this medication in the next year may cause her demise, She states she is taking it for a year. She understands and verbalizes understanding of this. - We had a long conversation about CHF and fluid balance. She will weigh herself daily and will fluid restrict to 1800 ml daily. - She is stable for discharge today. She is refusing any other medications including ACEI or BB, or amiodarone or blood thinners for stroke prophylaxis. She ius only wiling to use lasix PRN and Plavix and aspirin. - Follow up in 1 month.
--- NOTE | 2018-06-04 12:47 | DIS ---
DATE OF ADMISSION: 05/31/2018 DATE OF DISCHARGE: 06/04/2018 DISCHARGE DIAGNOSES: 1. Non-ST elevation myocardial infarction, status post drug eluting stent to the mid RCA x2, 05/31/2018. 2. Paroxysmal atrial fibrillation with conversion to sinus rhythm, stable. 3. Acute on chronic combined congestive heart failure with ejection fraction of 10-15%, stable. 4. Ischemic cardiomyopathy with ejection fraction of 10-15%, status post AICD. 5. Hypertension, stable. 6. Hyperlipidemia. CONSULTATIONS: Dr. Laughlin and Dr. Navas with Cardiology Service. Dr. Fontanez with Pulmonology Service. PERTINENT LABORATORY AND X-RAY FINDINGS: Creatinine ranged between 0.84-1.29, estimated GFR ranged between 48-79, magnesium 1.9, AST ranged between 31-176, ALT ranged between 20-35, total cholesterol 178, triglycerides 57, HDL 53, LDL 114. TSH 4.21. CBC showed a white blood cell count ranging between 8.7-14.4, hemoglobin ranged between 12.9-13.6. A 2D transthoracic echocardiogram dated showed ejection fraction of 15-20%. Grade III/III diastolic dysfunction. Biatrial enlargement. Severe mitral valve regurgitation. Moderate tricuspid regurgitation. Right ventricular systolic pressure of 75 mmHg. HOSPITAL COURSE: Patient was initially admitted to the telemetry unit after presenting with chest pain with associated non-ST elevation myocardial infarction. Troponin I ranged between 2.1-13.6 and patient was evaluated by the Cardiology Service taken for left heart catheterization on 05/31/2018. The patient was noted with occlusion of the mid LAD, undergoing balloon angioplasty x3 as well as PCI with drug-eluting stent placement x2 to the mid right coronary artery. The patient was continued on dual antiplatelet therapy and monitored clinically. The patient continued on Lipitor, beta blockers and ANILA inhibitors throughout the hospital course. The patient was noted postoperatively with paroxysmal atrial fibrillation converting to sinus mechanism in less than 24 hours. The patient was initially placed on amiodarone and converted to amiodarone orally and continued on Lovenox 90 mg b.i.d. Due to short duration of the atrial fibrillation and complications with amiodarone including nausea, the patient was discontinued on amiodarone with recommendations to continue beta mitra therapy as well as dual antiplatelet therapy and no oral anticoagulation. Current telemetry monitoring shows a sinus mechanism with heart rates in the 60s. The patient overall remained clinically stable, status post cardiac stent placement and telemetry monitoring showed a persistent sinus mechanism without recurrence of atrial fibrillation. I examined the patient at the time of discharge and discussed followup instructions. The patient verbalized understanding and in agreement for discharge on 06/04/2018. DISCHARGE MEDICATIONS: 1. Lasix 20 mg p.o. daily. 2. Enteric-coated aspirin 81 mg p.o. daily. 3. Lipitor 40 mg p.o. at bedtime. 4. Plavix 75 mg p.o. daily. 5. Lisinopril 2.5 mg p.o. daily. 6. Toprol-XL 25 mg p.o. daily. 7. Nitroglycerin 0.4 mg sublingually every 5 minutes p.r.n. chest pain. 8. Restoril 15 mg p.o. at bedtime p.r.n. FOLLOWUP: The patient will follow up with her primary care provider, Dr. Liss Barrientos, within 7 days of discharge. The patient will follow up with Dr. Redd Laughlin with [facility] and to call his office for appointment time and date. CONDITION ON DISCHARGE: Stable. ACTIVITY: Ad trudy. SPECIAL INSTRUCTIONS: Follow up with outpatient cardiac rehabilitation on 06/14 at 2:00 p.m. DIET: Heart healthy. CODE STATUS: Full. DISPOSITION: Home, 06/04/2018. Total time of discharge, 35 minutes. MTDD
[2018-06-04 12:48] VITALS: BP 115/72; TEMP 97.7
--- NOTE | 2018-06-09 12:03 | EKG ---
Test Reason : CHEST PAIN Blood Pressure : / mmHG Vent. Rate : 079 BPM Atrial Rate : 079 BPM P-R Int : 138 ms QRS Dur : 094 ms QT Int : 396 ms P-R-T Axes : 049 -07 032 degrees QTc Int : 454 ms Normal sinus rhythm Nonspecific T wave abnormality Abnormal ECG Confirmed by ALFRED MATHEW MD ([id number]), graphic editor MIGUEL JOSEPH ([id number]) on 06/09/2018 12:03:27 PM Referred By: Confirmed By:ALFRED MATHEW MD
--- NOTE | 2018-06-09 12:04 | EKG ---
Test Reason : Blood Pressure : / mmHG Vent. Rate : 076 BPM Atrial Rate : 076 BPM P-R Int : 148 ms QRS Dur : 092 ms QT Int : 412 ms P-R-T Axes : 054 -04 086 degrees QTc Int : 463 ms Normal sinus rhythm Nonspecific T wave abnormality Abnormal ECG Confirmed by QUINCY DUBON, ALFRED ([id number]), video editor MIGUEL JOSEPH ([id number]) on 06/09/2018 12:03:33 PM Referred By: Confirmed By:ALFRED MATHEW MD
== END 2018-06-04 15:00 | disposition home or self-care (01) | DRG 246 ==
LOC: ERS 21:39 → IMCU/EMU 05-31 01:33 → 2NO 06-02 17:13
PROVIDERS: ADMIT Internal Medicine; ATTEND Internal Medicine
PROC: 027035Z Dilation of Coronary Artery, One Artery with Two Drug-eluting Intraluminal Devices, Percutaneous Approach (ICD-10-PCS; principal; 2018-05-31)
PROC: 4A023N7 Measurement of Cardiac Sampling and Pressure, Left Heart, Percutaneous Approach (ICD-10-PCS; 2018-05-31)
PROC: B2111ZZ Fluoroscopy of Multiple Coronary Arteries using Low Osmolar Contrast (ICD-10-PCS; 2018-05-31)
PROC: B2151ZZ Fluoroscopy of Left Heart using Low Osmolar Contrast (ICD-10-PCS; 2018-05-31)
DX: I21.4 Non-ST elevation (NSTEMI) myocardial infarction (principal); I50.23 Acute on chronic systolic (congestive) heart failure; I47.2 Ventricular tachycardia; Z86.73 Personal history of transient ischemic attack (TIA), and cerebral infarction without residual deficits; I25.10 Atherosclerotic heart disease of native coronary artery without angina pectoris; M19.90 Unspecified osteoarthritis, unspecified site; E78.5 Hyperlipidemia, unspecified; Z91.14 Patient's other noncompliance with medication regimen; I25.2 Old myocardial infarction; Z88.8 Allergy status to other drugs, medicaments and biological substances; Z79.899 Other long term (current) drug therapy; R79.89 Other specified abnormal findings of blood chemistry; I48.0 Paroxysmal atrial fibrillation; I25.5 Ischemic cardiomyopathy; G47.33 Obstructive sleep apnea (adult) (pediatric); Z96.653 Presence of artificial knee joint, bilateral; Z95.810 Presence of automatic (implantable) cardiac defibrillator; Z88.1 Allergy status to other antibiotic agents
CPT/HCPCS: 36415; 80048; 80053; 80061; 82565; 83735; 84443; 84484; 85014; 85018; 85025; 85049; 85347; 92928; 93005; 93010; 93306; 93458; 93798; 96372; 99152; 99153; C1760; C1769; C1874; C9600; J0282; J1644; J1650; J1940; J2001; J2250; J2270; J2405; J3010; J7070; Q0162

== ENCOUNTER 2018-06-09 01:05 | Observation (INO) | payer MEDICARE ==
[2018-06-09 02:38] LABS: CKMB 2.1 ng/mL (0-6.6)
[2018-06-09 02:41] LABS: Troponin I 0.485 ng/mL (< 0.028)
[2018-06-09 05:17] LABS: Critical Call Chem Troponin I RESULT DECREASING; Troponin I 0.475 ng/mL (< 0.028)
[2018-06-09 05:53] VITALS: BMI 37.3
[2018-06-09] MEDS ORDERED: Sodium Chloride 0.65% Nasal 44 ML BOT EA NARE PRN (07:31)
[2018-06-09] MEDS ORDERED: Zolpidem Tartrate 5 MG TAB PO PRN (07:31)
[2018-06-09] MEDS ORDERED: Nitroglycerin 0.4 MG TAB (25 Tab Bottle) SL PRN (07:31)
[2018-06-09] MEDS ORDERED: Ondansetron PF 4 MG/2 ML Vial IVP PRN (07:31)
[2018-06-09] MEDS ORDERED: Temazepam 15 MG CAP PO PRN (07:31)
[2018-06-09] MEDS ORDERED: Calcium Carbonate 500 MG ChewTAB PO PRN (07:31)
[2018-06-09] MEDS ORDERED: Senokot S 8.6-50 MG TAB PO PRN (07:31)
[2018-06-09] MEDS ORDERED: Eucerin (Mineral Oil/Petrolatum,White) 30 gm Jar TOP PRN (07:31)
[2018-06-09] MEDS ORDERED: Bisacodyl 5 MG TAB PO PRN (07:31)
[2018-06-09] MEDS ORDERED: Loratadine 10 MG TAB PO PRN (07:31)
[2018-06-09] MEDS ORDERED: HYDROcodone/Acetaminophen 5/325 mg Tablet PO PRN (07:31)
[2018-06-09] MEDS ORDERED: hydrALAZINE 20 MG/ML VIAL SLOW IVP PRN (07:31)
[2018-06-09] MEDS ORDERED: Ondansetron ODT 4 MG TAB PO PRN (07:31)
[2018-06-09] MEDS ORDERED: Artificial Tear Sol 15 ML BOT EA EYE PRN (07:31)
[2018-06-09] MEDS ORDERED: Loperamide HCl 2 MG CAP PO PRN (07:31)
[2018-06-09] MEDS ORDERED: Acetaminophen 325 MG TAB PO PRN (07:31)
[2018-06-09] MEDS ORDERED: Diabetic Tussin 200 MG/10 ML UDCUP PO PRN (07:31)
[2018-06-09] MEDS ORDERED: Bisacodyl 10 MG SUPP PR PRN (07:31)
[2018-06-09] MEDS ORDERED: Cepastat Lozenges 1 LOZ PO PRN (07:31)
[2018-06-09 08:39] LABS: Troponin I 0.406 ng/mL (< 0.028)
[2018-06-09] MEDS: Enoxaparin Sodium 40 MG/0.4 ML SYRINGE SC SCH (08:58)
[2018-06-09] MEDS: Clopidogrel Bisulfate 75 MG TAB PO SCH (08:59)
[2018-06-09] MEDS: Famotidine 20 MG TAB PO SCH (08:59)
[2018-06-09] MEDS ORDERED: Lisinopril 2.5 MG TAB PO SCH (09:00)
[2018-06-09 09:01] LABS: CRP (Inflammatory) 2.95 mg/dL (= or < 0.5); Uric Acid 7.2 mg/dL (2.6-6.0)
--- NOTE | 2018-06-09 09:12 | ULT ---
PRELIMINARY REPORT/[facility]/EMERGENTY AFTER-HOURS PROCEDURE US Left Duplex Lower Extremity Veins, Limited EXAM DATE/TIME: 06/09/2018 1:34 AM CLINICAL HISTORY: 78 years old, female; Pain; Other: Lle pain, swelling, SHORTNESS OF BREATH TECHNIQUE: Real-time Duplex ultrasound of the Left Lower Extremity with 2-D sun scale, color Doppler flow and s pectral waveform analysis. Limited exam focused on the left lower extremity veins. COMPARISON: No relevant prior studies available. FINDINGS: Left deep veins: Unremarkable. The common femoral, femoral and popliteal veins are patent without thr ombus. Normal compressibility, augmentation response and Doppler waveforms. Left superficial veins: Unremarkable. Saphenofemoral junction is patent without thrombus. Soft tissues: Unremarkable. IMPRESSION: No acute findings. No evidence of deep vein thrombosis. Thank you for allowing us to participate in the care of your patient. Dictated and Authenticated by: Modesta Jimenez MD 06/09/2018 5:22 AM Central Time ([place] & [place]) FINAL REPORT LEFT LOWER EXTREMITY VENOUS DUPLEX EXAM: FINDINGS: The veins of the left lower extremity were evaluated with color doppler and spectral analysis. No evidence of DVT. I am in agreement with the preliminary report. Code QA POS: [facility]
[2018-06-09] MEDS ORDERED: Colchicine 0.6 MG TAB PO SCH (10:30)
--- NOTE | 2018-06-09 11:26 | HP ---
PRIMARY CARE PHYSICIAN: Dr. Liss Barrientos. REASON FOR ADMISSION: Left foot pain, CHF exacerbation. HISTORY OF PRESENT ILLNESS: A 78-year-old female who has chronic ischemic cardiomyopathy and based o n last echocardiography on 05/31/2018, her EF is 15%-20%. She also has associated diastolic dysfunct ion, severe mitral regurgitation and moderate tricuspid regurgitation as well as pulmonary hypertensi on. She was recently admitted on 05/31/2018 with chest pain and she had non-ST elevation MS. The pa kimberly had a cardiac catheterization done by Dr. Laughlin and the patient had drug-eluting stent placed in mid RCA as well as another stent was placed in RCA. During that admission, the patient was evalua jonas by cardiopulmonary group. The patient was discharged home with Lasix on 06/04/2018. After discharge, the patient was doing relatively well. She was taking all her medication as per pre scription. She did not miss any medications. She was not having any recurrent chest pain. The jenniffer ent initially went to [facility] with increasing shortness of breath. The patient w as also having left foot pain. The patient did not have any classic orthopnea, PND or pitting edema. She had elevated BNP and the patient was given Lasix 20 mg x2 and aspirin 324 mg and nitropatch at [facility]. Her chest x-ray did show pulmonary vascular congestion. After IV Lasix , the patient made significant urine and the patient was feeling much better when she transferred to our emergency room. The patient also reported that before going to [facility], she also took her oral Lasix at home. This time, she did not have any chest pain, but her troponin is st ill elevated from previous. The patient also reports that she has left foot pain in the mid foot region, which is sharp, getting worse with touch and the area is getting swollen with surrounding erythema and hypersensitivity with the skin. She denies any fever or chills. She denies any trauma. She denies any similar problem in past. She denies any UTI symptoms. She denies any PND, orthopnea, syncope, palpitations. She does have a long history of CHF and that is why she has AICD in place. She is not taking lisinop ril, because the patient's multiple family member had a reaction with angioedema. PAST MEDICAL HISTORY: Ischemic cardiomyopathy, severe mitral regurgitation, moderate tricuspid regur gitation, pulmonary hypertension, coronary artery disease with recent stenting x2 with drug-eluting s tent, history of CVA in 2015, hypertension, dyslipidemia. PAST SURGICAL HISTORY: AICD with pacemaker placement, bilateral knee surgery, cardiac catheterizatio n with stent placement, bunionectomy. PAST PSYCHIATRIC HISTORY: Reviewed and negative. FAMILY HISTORY: Positive for angioedema with lisinopril. Multiple family members has heart problems , hypertension. No strong family history of cancer. SOCIAL HISTORY: The patient is and lives at home with her . Her is currently present. No history of tobacco, alcohol or illicit drug abuse. ALLERGIES: Patient is allergic to TETRACYCLINE, CIPROFLOXACIN. The patient is not really allergic t o LISINOPRIL, but she does not want to take lisinopril because multiple family members has side effec ts with the lisinopril. CURRENT HOME MEDICATION: Lasix 20 mg p.o. daily, aspirin 81 mg p.o. daily, Lipitor 40 mg p.o. at bed time, Plavix 75 mg p.o. daily, Toprol-XL 25 mg p.o. daily, Restoril 15 mg p.o. at bedtime p.r.n. EMERGENCY ROOM COURSE: At [facility], the patient was given Lasix 20 mg x2, nitropa tch, aspirin. REVIEW OF SYSTEMS: The following complete review of systems was negative, unless otherwise mentioned in the HPI or below: Constitutional: Weight loss or gain, ability to conduct usual activities. Skin: Rash, itching. Eyes: Double vision, pain. ENT/Mouth: Nose bleeding, neck stiffness, pain, tenderness. Cardiovascular: Palpitations, dyspnea on exertion, orthopnea. Respiratory: Shortness of breath, wheezing, cough, hemoptysis, fever or night sweats. Gastrointestinal: Poor appetite, abdominal pain, heartburn, nausea, vomiting, constipation, or diarr hea. Genitourinary: Urgency, frequency, dysuria, nocturia. Musculoskeletal: Pain, swelling. Neurologic/Psychiatric: Anxiety, depression. Allergy/Immunologic: Skin rash, bleeding tendency. Please see my HPI for pertinent positive and negative. All other review of systems reviewed and nega tive except as mentioned in the HPI. PHYSICAL EXAMINATION: VITAL SIGNS: On arrival to our emergency room, blood pressure 95/67, pulse 88, respiratory rate 23, temperature 97.6, saturation 99% on room air, weight 92.5 kilograms. GENERAL: The patient is currently alert, awake, no obvious acute distress. HEENT: Head: Normocephalic, atraumatic. Eyes: Pupils round, reactive to light. Extraocular muscl e intact. ENT: Oropharynx within normal limits. Moist mucous membranes. No oral lesion, no pharyn geal erythema, no exudate. NECK: Supple, no JVD, no thyromegaly, no carotid bruit, no jugular venous distention. LUNGS: Few basilar rales noted. No wheeze, no rhonchi, no accessory muscles of respiration in use. CARDIAC: S1, S2 regular. Systolic murmur present at apex and lower left sternal border. No gallop, no rub. ABDOMEN: Soft, bowel sounds present, nontender, nondistended. No organomegaly, no mass, no suprapub ic tenderness. BACK: Unremarkable, no CVA tenderness. EXTREMITIES: Upper extremity, passive movement of all joints are normal. Lower extremity, trace low er extremity edema noted. The patient's left foot has hypersensitive skin with erythema, warmth, and tenderness noted. Good distal pulsation. SKIN: No skin rash other than mild erythema over left foot. PSYCHIATRIC: Normal affect. NEUROLOGIC: Nonfocal examination. ASSESSMENT: 1. Acute on chronic combined systolic and diastolic heart failure. 2. Left foot pain, suspecting from acute gout attack. 3. Multivessel coronary artery disease, required stenting recently. 4. Elevated troponin likely downtrending from previous and recent non-ST elevation myocardial infarc tion. 5. History of ischemic cardiomyopathy with AICD with pacemaker with EF 15% -20% on optimum medical t herapy. 6. Moderate tricuspid regurgitation, severe mitral regurgitation and pulmonary hypertension based on previous echocardiography. 7. Obesity with body mass index 37. PLAN: Full admission to telemetry floor. Lasix 20 mg IV b.i.d. The patient's home medication inclu ding aspirin, Plavix, Toprol-XL will be restarted. This patient does not want to take lisinopril, be cause of family members has allergic reaction with angioedema, though she is not allergic. I spoke w ith the patient and family member about advantage of ANILA inhibitor with remodeling of left ventricle, but still she does not want to take that medication. Currently, the patient is chest pain free. He r troponin elevated is likely related with a down trending from previously elevated troponin. We kaushik cked uric acid and CRP, which is high and that corresponds with acute gouty attack and that is why we are starting colchicine 0.6 mg twice daily. Once pain is under control, then we will start allopuri nol, along with colchicine. Deep venous thrombosis prophylaxis with Lovenox 40 mg subcutaneously daily. Gastrointestinal prophyl axis with Pepcid 20 mg p.o. b.i.d. CODE STATUS: The patient is FULL CODE. Patient's is surrogate decision maker. Disposition plan based on clinical course. Plan of care discussed with the patient and patient's hus band at bedside.
--- NOTE | 2018-06-09 11:53 | EKG ---
Test Reason : Blood Pressure : / mmHG Vent. Rate : 081 BPM Atrial Rate : 081 BPM P-R Int : 132 ms QRS Dur : 098 ms QT Int : 386 ms P-R-T Axes : 030 -15 077 degrees QTc Int : 448 ms Normal sinus rhythm Anterior infarct , age undetermined Abnormal ECG Leftward axis Confirmed by MARA PRECIADO DO ([id number]), development editor MIGUEL JOSEPH ([id number]) on 06/09/2018 11:52:57 AM Referred By: Confirmed By:MARA PRECIADO DO
[2018-06-09] MEDS: Furosemide 20 MG/2 ML VIAL SLOW IVP SCH (13:33)
--- NOTE | 2018-06-09 17:11 | CON ---
DATE OF CONSULTATION: 06/09/2018 HISTORY: Sandie Joe is a 78-year-old black female recently evaluated by Dr. Laughlin. She was admitted on 05/30/2018 with chest discomfort, which started when she was in a mandaeism. She was short of breath and diaphoretic with that. In the emergency room, she received morphine and nitro paste and her pain resolved. She had a troponin up to 13. Echocardiogram revealed ejection fraction of 15%-20% with evidence for diastolic dysfunction, severe mitral regurgitation, aortic valvular sclerosis, mild aortic regurgitation, moderate tricuspid regurgitation. Ultimately, decision was made to have her undergo cardiac catheterization for her non-STEMI. This revealed an occluded mid LAD with left to left collaterals to the distal LAD. This was opened and Synergy 3.0 x 32 mm and overlapping and proximal Synergy 3.0 x 12 mm stents were placed. At some time during that admission, she did have atrial fibrillation and was treated with IV amiodarone and eventually converted to sinus rhythm. The amiodarone seem to cause nausea and ultimately that was discontinued. The atrial fibrillation apparently was of short duration. She refused any many other medications including ANILA inhibitor, beta mitra or amiodarone or anticoagulation for stroke prophylaxis. She was discharged on Lasix 20 daily, but in the hospital refused to take that. She states that she was taking all of her medications as prescribed at home. However, frequently in the hospital, she refused medicines and stated that she did not want to take any, but did agree to take the aspirin and Plavix. She denied any recurrent chest discomfort. She then returned to the [place] ER on 06/09/2018 complaining of increased shortness of breath, left foot pain and edema. She was given Lasix 20 mg IV x2 and her breathing improved. She was transferred here. At the present time, she denies any chest discomfort. PAST MEDICAL HISTORY: Ischemic cardiomyopathy, severe mitral regurgitation. Coronary artery disease status post stenting on 05/1818 of the mid LAD, history of CVA in 2015, hypertension, hyperlipidemia. MEDICATIONS: Aspirin 81 daily, Plavix 75 mg daily, atorvastatin 40 daily, furosemide 20 mg q.a.m., metoprolol 25 q.a.m., nitroglycerin p.r.n., Restoril 15 mg at bedtime p.r.n. ALLERGIES: TETRACYCLINE and CIPRO. She refused to take ANILA inhibitors due to several family members having had angioedema, although she has never had a reaction to it. SOCIAL HISTORY: She does not smoke or drink. OPERATIONS: AICD placement in [place]. From her chest x-ray, this appears to be a single chamber device, although appears that there are 2 headers, I imagine that the atrial lead is capped off. Bilateral knee surgery, bunionectomy, lap band in 2006. REVIEW OF SYSTEMS: Twelve-point review of systems otherwise unremarkable. PHYSICAL EXAMINATION: VITAL SIGNS: Blood pressure 111/68, pulse 78. HEENT: PERRL. NECK: Supple. CHEST: Clear. CARDIAC: S1, S2 normal without any S3, S4. There is a 2/6 holosystolic murmur at the apex. ABDOMEN: Obese. Normal bowel sounds. No tenderness. EXTREMITIES: Revealed 1+ edema of the left foot with erythema of the dorsum of the foot. There is no edema on the right. NEUROLOGIC: Grossly intact. SKIN: Warm and dry. LABORATORY DATA: EKG revealed normal sinus rhythm with possible anterior infarction. Lower extremity venous duplex of the left leg revealed no evidence of DVT. Hemoglobin 12.5, hematocrit 37.5, white count 10,300, platelets 322, 000. Sodium 141, potassium 3.9, chloride 106, carbon dioxide 23, BUN 21, creatinine 0.91. Troponin I 0.485 falling to 0.406. AST 40, ALT 60. IMPRESSION: 1. Cardiomyopathy, which probably is nonischemic, seeming to predate her coronary artery disease. 2. Status post ICD placement in [place]. This appears to be a single chamber device. 3. Status post drug-eluting stent placement in the mid LAD on 03/31/2018. She has no evidence of acute stent thrombosis. She has no chest pain, no acute changes on her EKG and no significant increase in her cardiac enzymes. 4. Non-STEMI during previous admission. Her current troponin I levels are consistent with gradual reduction of the troponin I since her infarct. There is no evidence that this is an acute finding. 5. Hypercholesterolemia. 6. Medical noncompliance. 7. Hypertension. 8. Paroxysmal atrial fibrillation. 9. Probable gout. PLAN: The patient will be diuresed with intravenous Lasix. She states she was taking her medications at home; however, I am not certain that is indeed the case. No further evaluation or intervention needed for her decreasing troponin I levels. MTDD
[2018-06-09] MEDS: Atorvastatin Calcium 40 MG TAB PO SCH (20:20)
[2018-06-09] MEDS: Colchicine 0.6 MG TAB PO SCH (20:21)
[2018-06-10 04:45] LABS: #Basophils 0.1 thou/uL (0.0-0.2); #Eosinphils 0.2 thou/uL (0.0-0.7); #Lymphocytes 2.4 thou/uL (1.20-3.40); #Neutrophils 5.8 thou/uL (1.40-6.50); %Basophils 0.7 % (0.0-1.0); %Eosinophils 1.6 % (0.0-10.0); %Lymphocytes 25.3 % (21.0-51.0); %Monocytes 10.7 % (0.0-10.0); %Neutrophils 61.8 % (42.0-75.0); Hemoglobin 12.5 g/dL (12.0-16.0); Mean Corpuscular Hemoglobin 32.7 pg (27.0-31.0); Mean Corpuscular Volume 96.3 fL (78.0-98.0); Mean Platelet Volume 6.9 fL (7.4-10.4); Platelet Count 283 thou/uL (130-400); RBC Distribution Width 12.8 % (11.5-14.5); Red Blood Cell (RBC) Count 3.83 mill/uL (4.20-5.40); White Blood Cell (WBC) Count 9.3 thou/uL (4.8-10.8)
[2018-06-10 04:59] LABS: ALT (SGPT) 40 U/L (8-55); AST (SGOT) 29 U/L (5-34); Albumin 3.3 g/dL (3.4-4.8); Alkaline Phosphatase 89 U/L (40-150); Anion Gap 12 mmol/L (10-20); BUN (Urea Nitrogen) 22 mg/dL (9.8-20.1); Bilirubin, Total 0.6 mg/dL (0.2-1.2); Calc. Creatinine Clearance 78 mL/min (70-130); Calcium 8.3 mg/dL (7.8-10.44); Carbon Dioxide 26 mmol/L (23-31); Chloride 106 mmol/L (98-107); Estimated GFR-MDRD 76; Globulin 3.1 g/dL (2.4-3.5); Glucose 122 mg/dL (83-110); Magnesium 1.4 mg/dL (1.6-2.6); Potassium 3.6 mmol/L (3.5-5.1); Protein, Total 6.4 g/dL (6.0-8.3); Sodium 140 mmol/L (136-145)
[2018-06-10] MEDS: Furosemide 20 MG/2 ML VIAL SLOW IVP SCH (06:14)
[2018-06-10] MEDS ORDERED: Magnesium Sulfate 3 GM in Sodium Chloride 0.9% 100 ML IVPB SCH (08:30)
[2018-06-10] MEDS: Clopidogrel Bisulfate 75 MG TAB PO SCH (08:40)
[2018-06-10] MEDS: Famotidine 20 MG TAB PO SCH (08:40)
[2018-06-10] MEDS: Enoxaparin Sodium 40 MG/0.4 ML SYRINGE SC SCH (08:44)
[2018-06-10] MEDS: Colchicine 0.6 MG TAB PO SCH ×2 (09:59→20:57)
--- NOTE | 2018-06-10 11:05 | PDOC.PN ---
- Subjective Encounter Start Date: 06/10/18 Encounter Start Time: 09:30 -: old records requested/rev Patient seen and examined. No new complaints. No overnight events - Objective Resuscitation Status: Resuscitation Status FULL:Full Resuscitation MAR Reviewed: Yes Vital Signs & Weight: Vital Signs (12 hours) Temp Pulse Resp BP Pulse Ox 06/10/18 07:10 65 20 116/63 100 06/10/18 04:00 97.2 F L 70 18 112/68 98 06/10/18 00:00 97.8 F 73 18 107/67 98 Weight Weight 203 lb I&O: 06/09/18 06/10/18 06/11/18 06:59 06:59 06:59 Intake Total 1264 Output Total 1200 800 Balance 64 -800 Result Diagrams: 06/10/18 04:04 06/10/18 04:04 EKG Reviewed by me: Yes Phys Exam - Physical Examination Constitutional: NAD HEENT: PERRLA, moist MMs, sclera anicteric Neck: no JVD, supple Respiratory: no wheezing, no rhonchi few basal rales Cardiovascular: RRR, no significant murmur, no rub Gastrointestinal: soft, non-tender, no distention, positive bowel sounds Musculoskeletal: no edema, pulses present Neurological: non-focal, normal sensation, moves all 4 limbs Psychiatric: normal affect, A&O x 3 Skin: no rash, normal turgor Dx/Plan (1) Acute gout Code(s): M10.9 - GOUT, UNSPECIFIED Status: Acute (2) Acute on chronic combined systolic and diastolic ACC/AHA stage C congestive heart failure Code(s): I50.43 - ACUTE ON CHRONIC COMBINED SYSTOLIC AND DIASTOLIC HRT FAIL Status: Acute (3) Elevated troponin Code(s): R74.8 - ABNORMAL LEVELS OF OTHER SERUM ENZYMES Status: Acute (4) Hypomagnesemia Code(s): E83.42 - HYPOMAGNESEMIA Status: Acute (5) CAD, multiple vessel Code(s): I25.10 - ATHSCL HEART DISEASE OF [place] CORONARY ARTERY W/O ANG PCTRS Status: Chronic (6) Ischemic cardiomyopathy Code(s): I25.5 - ISCHEMIC CARDIOMYOPATHY Status: Chronic Comment: EF 10-15% now, AICD already in place (7) Moderate tricuspid regurgitation by prior echocardiogram Code(s): I07.1 - RHEUMATIC TRICUSPID INSUFFICIENCY Status: Chronic (8) Normally functioning cardiac pacemaker present Code(s): Z95.0 - PRESENCE OF CARDIAC PACEMAKER Status: Chronic (9) Obesity (BMI 30-39.9) Code(s): E66.9 - OBESITY, UNSPECIFIED Status: Chronic (10) Pulmonary hypertension Code(s): I27.20 - PULMONARY HYPERTENSION, UNSPECIFIED Status: Chronic (11) Severe mitral regurgitation by prior echocardiogram Code(s): I34.0 - NONRHEUMATIC MITRAL (VALVE) INSUFFICIENCY Status: Chronic - Plan cont current plan of care * continue lasix * replace magnesium * continue colchicine * medication reviewed as below * symptomatic treatment * expecting discharge tomorrow * overall doing well. Review of Systems - Review of Systems ENT: negative: Ear Pain, Ear Discharge, Nose Pain, Nose Discharge, Nose Congestion, Mouth Pain, Mouth Swelling, Throat Pain, Throat Swelling, Other Respiratory: negative: Cough, Dry, Shortness of Breath, Hemoptysis, SOB with Excertion, Pleuritic Pain, Sputum, Wheezing Cardiovascular: negative: chest pain, palpitations, orthopnea, paroxysmal nocturnal dyspnea, edema, light headedness, other Gastrointestinal: negative: Nausea, Vomiting, Abdominal Pain, Diarrhea, Constipation, Melena, Hematochezia, Other Genitourinary: negative: Dysuria, Frequency, Incontinence, Hematuria, Retention , Other Musculoskeletal: negative: Neck Pain, Shoulder Pain, Arm Pain, Back Pain, Hand Pain, Leg Pain, Foot Pain, Other Skin: negative: Rash, Lesions, Doni, Bruising, Other - Medications/Allergies Allergies/Adverse Reactions: Allergies Allergy/AdvReac Type Severity Reaction Status Date / Time ciprofloxacin [From Cipro] Allergy Verified 05/31/18 02:09 tetracycline Allergy Verified 05/31/18 02:09 Medications: Current Medications Acetaminophen (Tylenol) 650 mg PO Q4H PRN PRN Reason: Headache/Fever/Mild Pain (1-3) Hydrocodone Bitart/Acetaminophen ([place] 5/325) 1 tab PO Q4H PRN PRN Reason: Moderate Pain (4-6) Artificial Tears (Tears Renewed 15ml Bottle) 2 drop EA EYE PRN PRN PRN Reason: Dry Eyes Aspirin (Aspirin Chewable) 81 mg PO DAILY [facility] Last Admin: 06/10/18 08:40 Dose: 81 mg Atorvastatin Calcium (Lipitor) 40 mg PO HS [facility] Last Admin: 06/09/18 20:20 Dose: 40 mg Bisacodyl (Dulcolax) 10 mg PO DAILYPRN PRN PRN Reason: Constipation Bisacodyl (Dulcolax) 10 mg [place] DAILYPRN PRN PRN Reason: Constipation Calcium Carbonate (Tums) 1,000 mg PO Q4H PRN PRN Reason: Heartburn or Indigestion Clopidogrel Bisulfate (Plavix) 75 mg PO DAILY [facility] Last Admin: 06/10/18 08:40 Dose: 75 mg Colchicine (Colcrys) 0.6 mg PO BID [facility] Last Admin: 06/10/18 09:59 Dose: 0.6 mg Enoxaparin Sodium (Lovenox) 40 mg SC 0900 [facility] Last Admin: 06/10/18 08:44 Dose: 40 mg Famotidine (Pepcid) 20 mg PO DAILY [facility] Last Admin: 06/10/18 08:40 Dose: 20 mg Furosemide (Lasix) 20 mg PO 0900,1400 [facility] Guaifenesin (Robitussin Sf) 200 mg PO Q4H PRN PRN Reason: Cough Hydralazine HCl (Apresoline) 5 mg SLOW IVP Q4H PRN PRN Reason: SBP > 180 and HR < 70 Loperamide HCl (Imodium) 2 mg PO PRN PRN PRN Reason: Diarrhea/Loose Stools Loratadine (Claritin) 10 mg PO DAILYPRN PRN PRN Reason: Sinus Symptoms Metoprolol Succinate (Toprol Xl) 25 mg PO DAILY [facility] Last Admin: 06/10/18 08:41 Dose: 25 mg Mineral Oil/White Petrolatum (Eucerin Cream) 0 gm TOP BIDPRN PRN PRN Reason: Dry Skin Nitroglycerin (Nitrostat) 0.4 mg SL Q5MIN PRN PRN Reason: Chest Pain Ondansetron HCl (Zofran Odt) 4 mg PO Q6H PRN PRN Reason: Nausea/Vomiting Ondansetron HCl (Zofran) 4 mg IVP Q6H PRN PRN Reason: Nausea/Vomiting Senna/Docusate Sodium (Senokot S) 2 tab PO BID PRN PRN Reason: Constipation Sodium Chloride ([place] Nasal [place] 0.65%) 0 ml EA NARE QIDPRN PRN PRN Reason: Nasal Congestion Temazepam (Restoril) 15 mg PO HSPRN PRN PRN Reason: Insomnia Throat Lozenges (Cepastat Lozenges) 1 negro PO Q2H PRN PRN Reason: Sore Throat Zolpidem Tartrate (Ambien) 5 mg PO HSPRN PRN PRN Reason: Insomnia
[2018-06-10] MEDS: Furosemide 20 MG TAB PO SCH (15:18)
[2018-06-10] MEDS: Atorvastatin Calcium 40 MG TAB PO SCH (20:57)
[2018-06-11] MEDS: Colchicine 0.6 MG TAB PO SCH (08:28)
[2018-06-11] MEDS: Famotidine 20 MG TAB PO SCH (08:28)
[2018-06-11] MEDS: Enoxaparin Sodium 40 MG/0.4 ML SYRINGE SC SCH (08:28)
[2018-06-11] MEDS: Clopidogrel Bisulfate 75 MG TAB PO SCH (08:28)
[2018-06-11] MEDS: Furosemide 20 MG TAB PO SCH (08:28)
--- NOTE | 2018-06-11 09:56 | PDOC.PN ---
- Subjective Encounter Start Date: 06/11/18 Encounter Start Time: 07:30 -: old records requested/rev Patient seen and examined. No new complaints. No overnight events - Objective Resuscitation Status: Resuscitation Status FULL:Full Resuscitation MAR Reviewed: Yes Vital Signs & Weight: Vital Signs (12 hours) Temp Pulse Resp BP Pulse Ox 06/11/18 07:24 97.8 F 74 14 125/69 94 L 06/11/18 04:00 98.3 F 68 18 133/66 98 Weight Weight 202 lb I&O: 06/10/18 06/11/18 06/12/18 06:59 06:59 06:59 Intake Total 1264 1480 Output Total 1200 800 Balance 64 680 Result Diagrams: 06/10/18 04:04 06/10/18 04:04 EKG Reviewed by me: Yes Phys Exam - Physical Examination Constitutional: NAD HEENT: PERRLA, moist MMs, sclera anicteric Neck: no JVD, supple Respiratory: no wheezing, no rales, no rhonchi Cardiovascular: RRR, no significant murmur, no rub Gastrointestinal: soft, non-tender, no distention, positive bowel sounds Musculoskeletal: no edema, pulses present Neurological: non-focal, normal sensation, moves all 4 limbs Psychiatric: normal affect, A&O x 3 Skin: no rash, normal turgor Dx/Plan (1) Acute gout Code(s): M10.9 - GOUT, UNSPECIFIED Status: Acute (2) Acute on chronic combined systolic and diastolic ACC/AHA stage C congestive heart failure Code(s): I50.43 - ACUTE ON CHRONIC COMBINED SYSTOLIC AND DIASTOLIC HRT FAIL Status: Acute (3) Elevated troponin Code(s): R74.8 - ABNORMAL LEVELS OF OTHER SERUM ENZYMES Status: Acute (4) Hypomagnesemia Code(s): E83.42 - HYPOMAGNESEMIA Status: Acute (5) CAD, multiple vessel Code(s): I25.10 - ATHSCL HEART DISEASE OF [place] CORONARY ARTERY W/O ANG PCTRS Status: Chronic (6) Ischemic cardiomyopathy Code(s): I25.5 - ISCHEMIC CARDIOMYOPATHY Status: Chronic Comment: EF 10-15% now, AICD already in place (7) Moderate tricuspid regurgitation by prior echocardiogram Code(s): I07.1 - RHEUMATIC TRICUSPID INSUFFICIENCY Status: Chronic (8) Normally functioning cardiac pacemaker present Code(s): Z95.0 - PRESENCE OF CARDIAC PACEMAKER Status: Chronic (9) Obesity (BMI 30-39.9) Code(s): E66.9 - OBESITY, UNSPECIFIED Status: Chronic (10) Pulmonary hypertension Code(s): I27.20 - PULMONARY HYPERTENSION, UNSPECIFIED Status: Chronic (11) Severe mitral regurgitation by prior echocardiogram Code(s): I34.0 - NONRHEUMATIC MITRAL (VALVE) INSUFFICIENCY Status: Chronic - Plan cont current plan of care, plan discussed w/ family * medication reviewed as below * symptomatic treatment * see discharge haja. Review of Systems - Review of Systems ENT: negative: Ear Pain, Ear Discharge, Nose Pain, Nose Discharge, Nose Congestion, Mouth Pain, Mouth Swelling, Throat Pain, Throat Swelling, Other Respiratory: negative: Cough, Dry, Shortness of Breath, Hemoptysis, SOB with Excertion, Pleuritic Pain, Sputum, Wheezing Cardiovascular: negative: chest pain, palpitations, orthopnea, paroxysmal nocturnal dyspnea, edema, light headedness, other Gastrointestinal: negative: Nausea, Vomiting, Abdominal Pain, Diarrhea, Constipation, Melena, Hematochezia, Other Genitourinary: negative: Dysuria, Frequency, Incontinence, Hematuria, Retention , Other Musculoskeletal: negative: Neck Pain, Shoulder Pain, Arm Pain, Back Pain, Hand Pain, Leg Pain, Foot Pain, Other Skin: negative: Rash, Lesions, Doni, Bruising, Other - Medications/Allergies Allergies/Adverse Reactions: Allergies Allergy/AdvReac Type Severity Reaction Status Date / Time ciprofloxacin [From Cipro] Allergy Verified 05/31/18 02:09 tetracycline Allergy Verified 05/31/18 02:09 Medications: Current Medications Acetaminophen (Tylenol) 650 mg PO Q4H PRN PRN Reason: Headache/Fever/Mild Pain (1-3) Hydrocodone Bitart/Acetaminophen ([place] 5/325) 1 tab PO Q4H PRN PRN Reason: Moderate Pain (4-6) Artificial Tears (Tears Renewed 15ml Bottle) 2 drop EA EYE PRN PRN PRN Reason: Dry Eyes Aspirin (Aspirin Chewable) 81 mg PO DAILY [facility] Last Admin: 06/11/18 08:28 Dose: 81 mg Atorvastatin Calcium (Lipitor) 40 mg PO HS [facility] Last Admin: 06/10/18 20:57 Dose: 40 mg Bisacodyl (Dulcolax) 10 mg PO DAILYPRN PRN PRN Reason: Constipation Bisacodyl (Dulcolax) 10 mg [place] DAILYPRN PRN PRN Reason: Constipation Calcium Carbonate (Tums) 1,000 mg PO Q4H PRN PRN Reason: Heartburn or Indigestion Clopidogrel Bisulfate (Plavix) 75 mg PO DAILY [facility] Last Admin: 06/11/18 08:28 Dose: 75 mg Colchicine (Colcrys) 0.6 mg PO BID [facility] Last Admin: 06/11/18 08:28 Dose: 0.6 mg Enoxaparin Sodium (Lovenox) 40 mg SC 0900 [facility] Last Admin: 06/11/18 08:28 Dose: 40 mg Famotidine (Pepcid) 20 mg PO DAILY [facility] Last Admin: 06/11/18 08:28 Dose: 20 mg Furosemide (Lasix) 20 mg PO 0900,1400 [facility] Last Admin: 06/11/18 08:28 Dose: 20 mg Guaifenesin (Robitussin Sf) 200 mg PO Q4H PRN PRN Reason: Cough Hydralazine HCl (Apresoline) 5 mg SLOW IVP Q4H PRN PRN Reason: SBP > 180 and HR < 70 Loperamide HCl (Imodium) 2 mg PO PRN PRN PRN Reason: Diarrhea/Loose Stools Loratadine (Claritin) 10 mg PO DAILYPRN PRN PRN Reason: Sinus Symptoms Metoprolol Succinate (Toprol Xl) 25 mg PO DAILY [facility] Last Admin: 06/11/18 08:28 Dose: 25 mg Mineral Oil/White Petrolatum (Eucerin Cream) 0 gm TOP BIDPRN PRN PRN Reason: Dry Skin Nitroglycerin (Nitrostat) 0.4 mg SL Q5MIN PRN PRN Reason: Chest Pain Ondansetron HCl (Zofran Odt) 4 mg PO Q6H PRN PRN Reason: Nausea/Vomiting Ondansetron HCl (Zofran) 4 mg IVP Q6H PRN PRN Reason: Nausea/Vomiting Senna/Docusate Sodium (Senokot S) 2 tab PO BID PRN PRN Reason: Constipation Sodium Chloride ([place] Nasal [place] 0.65%) 0 ml EA NARE QIDPRN PRN PRN Reason: Nasal Congestion Temazepam (Restoril) 15 mg PO HSPRN PRN PRN Reason: Insomnia Throat Lozenges (Cepastat Lozenges) 1 negro PO Q2H PRN PRN Reason: Sore Throat Zolpidem Tartrate (Ambien) 5 mg PO HSPRN PRN PRN Reason: Insomnia
--- NOTE | 2018-06-11 11:26 | PDOC.EVN ---
Event Note - Event Note Event Note: I have reviewed the patient's case and she is appropriate for observation status in accordance with Medicare's Code 44 guidelines.
--- NOTE | 2018-06-11 11:33 | DIS ---
PRIMARY CARE PHYSICIAN: Dr. Liss Barrientos DATE OF ADMISSION: 06/09/2018 DATE OF DISCHARGE 06/11/2018 DISCHARGE DISPOSITION: Home. PRIMARY DISCHARGE DIAGNOSES: 1. Acute gouty arthritis of left foot. 2. Hypomagnesemia. 3. Acute on chronic combined systolic and diastolic congestive heart failure. SECONDARY DISCHARGE DIAGNOSES: Severe mitral regurgitation, pulmonary hypertension, obesity with BMI 36, history of AICD with pacemaker, moderate tricuspid regurgitation, ischemic cardiomyopathy, multi vessel coronary artery disease, chronic combined systolic and diastolic heart failure, hypouricemia. PRIMARY PROCEDURES/OPERATIONS: None. RADIOLOGICAL INVESTIGATION: Ultrasound was negative for any DVT. Ankle x-ray and foot x-ray did not show any acute process. SIGNIFICANT LABORATORY DATA: WBC 9.3, hemoglobin 12.5, platelet 283. Sodium 140, potassium 3.6, BUN 22, creatinine 0.87, calcium 8.3. Liver enzymes normal. CRP 2.95, uric acid 7.2, troponin 0.406. TSH 4.70. DISCHARGE MEDICATIONS: Nitroglycerin 0.4 mg sublingual p.r.n. for chest pain, allopurinol 100 mg p.o . daily, aspirin 81 mg p.o. daily, Lipitor 40 mg p.o. at bedtime, Plavix 75 mg p.o. daily, Lasix 20 m g p.o. b.i.d., Toprol-XL 25 mg p.o. daily, Aldactone 25 mg p.o. daily, potassium chloride 10 mEq p.o. daily, Restoril 15 mg p.o. at bedtime p.r.n., colchicine 0.6 mg p.o. b.i.d. as directed. CONTRAINDICATIONS: The patient is not given prescription for ANILA inhibitor or ARB because the patie nt does not want to take those medication because her belief that multiple family members has allergi c reactions with the ANILA inhibitor and ARB and that is why she does not want to take those medication s and that is why based on patient request it is not given despite our clearcut explanation that the se medications have benefit with cardiomyopathy and chronic systolic heart failure. CODE STATUS: Patient is full code. INPATIENT CONSULTANTS: Dr. Zamorano was consulted while in hospital. TEST RESULTS PENDING ON DISCHARGE: None. ALLERGIES: CIPROFLOXACIN, TETRACYCLINE. DISCHARGE PLAN: Post hospital, the patient will follow up with primary care physician on 06/13/2018 at 9:15 a.m. Patient has appointment with the [facility] on 06/20/2018 at 2:20 p.m. Maru dennison will follow up with Dr. Laughlin on 07/10/2018 at 1:15 p.m. HOSPITAL COURSE: A 78-year-old female with the above-mentioned medical problems who was recently adm itted for non-ST elevation CT. At that time, the patient required drug-eluting stent. This time, th e patient went to local emergency room for left foot pain which was evaluated with the ankle x-ray an d foot x-ray without any local pathology. Her clinical presentation was consistent with acute gouty attack that was supported by elevated CRP and uric acid. The patient was also complaining of increas ing shortness of breath and she had elevated BNP and some pulmonary vascular congestion on chest x-ra y which she required diuretic therapy while in hospital. The patient's acute gout was treated with colchicine and on discharge, we added allopurinol on her re gimen. The patient will continue overlapping therapy with the colchicine and allopurinol for at leas t one month and then allopurinol will be continued. During this admission, the patient was treated with Lasix IV while in hospital for diuretic therapy f or CHF and on discharge we increased Lasix 20 mg b.i.d. While in hospital we replaced electrolytes. We added Aldactone. We had patient education about heart failure and diet. We also requested to start an ANILA inhibitor, but patient does not want to take those medications including ARB because of her belief that multiple family members has allergic reaction and that is why she does not want to take those medications. The patient is seen and examined at bedside today. Plan of care discussed with the patient's . Please see my progress note from today for further details.
--- NOTE | 2018-06-11 12:20 | PDOC.CTH ---
Cardiology Progress Note - Subjective She is doing better. Her breathing is back to normal. She has diuresed very well. - Objective Vital Signs Temp Pulse Resp BP Pulse Ox 06/11/18 08:00 94 L 06/11/18 07:24 97.8 F 74 14 125/69 94 L 06/11/18 04:00 98.3 F 68 18 133/66 98 Weight 202 lb 06/10/18 06/11/18 06/12/18 06:59 06:59 06:59 Intake Total 1264 1480 Output Total 1200 800 Balance 64 680 - Physical Examination General/Neuro: alert & oriented x3, NAD Neck: no JVD present Lungs: unlabored respirations Heart: RRR Abdomen: NT/ND Extremities: other: (no edema) - Telemetry Telemetry Rhythm: NSR - Labs Result Diagrams: 06/10/18 04:04 06/10/18 04:04 Troponin/CKMB CK-MB (CK-2) 2.1 ng/mL (0-6.6) 06/09/18 01:29 Troponin I 0.406 ng/mL (< 0.028) H* 06/09/18 07:55 - Assessment/Plan 1. Acute on chronic systolic heart failure. 2. Non compliance 3. Ischemic CM EF at 20% 4. Recent NSTEMI with FLACO to LAD. PLAN: - Lasix 40 mg PO BID scheduled. She agrees to this. - She agrees to start on beta mitra but wants to wait on an ACEI or ARB. - She will take her aspirin and plavix, does not want to take a statin. - She is high risk for a bounce back due to non compliance. - She has close follow up with CHF clinic.
[2018-06-11] MEDS ORDERED: Furosemide 40 MG TAB PO SCH (14:00)
[2018-06-11 14:08] VITALS: BP 114/74; TEMP 97.6
== END 2018-06-11 13:45 | disposition home or self-care (01) ==
LOC: ERS 01:05 → IMCU/EMU 04:00 → INTOOBSV 04:00 → 2NO 06-10 18:53
PROVIDERS: ADMIT Family Medicine; ATTEND Family Medicine
DX: M10.072 Idiopathic gout, left ankle and foot (principal); I11.0 Hypertensive heart disease with heart failure; I50.43 Acute on chronic combined systolic (congestive) and diastolic (congestive) heart failure; E83.42 Hypomagnesemia; I27.20 Pulmonary hypertension, unspecified; E66.9 Obesity, unspecified; I08.1 Rheumatic disorders of both mitral and tricuspid valves; I25.5 Ischemic cardiomyopathy; I25.10 Atherosclerotic heart disease of native coronary artery without angina pectoris; Z79.02 Long term (current) use of antithrombotics/antiplatelets; Z79.899 Other long term (current) drug therapy; Z88.1 Allergy status to other antibiotic agents; Z95.5 Presence of coronary angioplasty implant and graft; Z68.36 Body mass index [BMI] 36.0-36.9, adult
CPT/HCPCS: 36415; 80053; 82553; 83735; 84443; 84484; 84550; 85025; 86140; 93005; 93798; J1650; J1940; J3475; J7050

== ENCOUNTER 2018-07-17 22:31 | Inpatient (IN) | payer MEDICARE ==
[2018-07-17] MEDS ORDERED: Ondansetron PF 4 MG/2 ML Vial ONE (23:03)
[2018-07-18 03:21] VITALS: BMI 33.5
[2018-07-18] MEDS ORDERED: Ondansetron PF 4 MG/2 ML Vial IVP PRN (04:54)
[2018-07-18] MEDS ORDERED: Ondansetron ODT 4 MG TAB SL PRN (04:54)
[2018-07-18] MEDS ORDERED: Acetaminophen 325 MG TAB PO PRN (04:54)
[2018-07-18] MEDS ORDERED: Nitroglycerin 0.4 MG TAB (25 Tab Bottle) SL PRN (09:23)
[2018-07-18] MEDS ORDERED: Aspirin 81 mg Enteric Coated Tablet PO SCH (10:30)
[2018-07-18] MEDS ORDERED: Clopidogrel Bisulfate 75 MG TAB PO SCH (10:30)
--- NOTE | 2018-07-18 12:16 | HP ---
PRIMARY CARE PROVIDER: Dr. Liss Barrientos. CHIEF COMPLAINT: Shortness of breath. HISTORY OF PRESENT ILLNESS: Ms. Joe is a pleasant 78-year-old lady, who was seen at [facility] on July 18, 2018. She was hospitalized at this facility from June 09 to of this year for acute gouty arthritis of left foot, hypomagnesemia, and acute on chronic combined systolic and diastolic congestive heart failure. She reports that she was doing well until approximately a week ago. She was taking furosemide 80 mg orally two times a day. About a week ago, she started having orthopnea. She also reports paroxysmal nocturnal dyspnea, but denies any leg swelling. She denies any fevers or chills. She denies any nausea or vomiting. She reports decreased appetite over the last week. She saw her primary care provider yesterday. Zaroxolyn was added to her treatment regimen. However, she presented to the emergency room at [place] because of ongoing shortness of breath. From there, she was transferred to this facility. REVIEW OF SYSTEMS: All other systems reviewed and found to be negative. PAST MEDICAL HISTORY: Ischemic cardiomyopathy, severe mitral regurgitation, moderate tricuspid regurgitation, pulmonary hypertension, coronary artery disease with PCI with stents, CVA in 2015, hypertension, and dyslipidemia. SURGICAL HISTORY: AICD with pacemaker placement, bilateral knee surgery, cardiac catheterization with stent placement, and bunionectomy. FAMILY HISTORY: Significant for angioedema with lisinopril. SOCIAL HISTORY: The patient denies tobacco use, alcohol use, or recreational drug use. CODE STATUS: I discussed her code status. She is full code. ALLERGIES: TETRACYCLINE AND CIPROFLOXACIN. SHE ALSO DOES NOT WANT TO TRY ANILA INHIBITORS BECAUSE OF MULTIPLE FAMILY MEMBERS WITH ANGIOEDEMA SECONDARY TO LISINOPRIL USE. MEDICATIONS: Current home medications: 1. Lasix 80 mg two times a day. 2. Plavix 75 mg daily. 3. Aspirin 81 mg daily. 4. Atorvastatin 40 mg daily. 5. Metoprolol tartrate 25 mg daily. The patient also took Zaroxolyn, dose unknown. PHYSICAL EXAMINATION: GENERAL: On examination, Ms. Joe is awake and alert, not in acute distress. VITAL SIGNS: Blood pressure is 108/67, pulse 80, respiratory rate 16, and oxygen saturation 92% on room air. She is afebrile. EYES: No scleral icterus. No conjunctival pallor. ENT: Moist mucosal membranes. No oropharyngeal erythema or exudates. NECK: Supple, nontender, trachea is midline. She has jugular venous distention. RESPIRATORY: Accessory muscles of breathing are not active. Chest wall movements are symmetric bilaterally. LUNG: Examination reveals diffuse scattered bibasilar crackles. CARDIOVASCULAR: S1 and S2 are heard, regular. Peripheral pulses palpable. No carotid bruits. No pericardial rub. ABDOMEN: Soft, nontender, bowel sounds are heard, no hepatomegaly, no splenomegaly. NEUROLOGIC: Cranial nerves 2 through 12 intact, deep tendon reflexes 2+. MUSCULOSKELETAL: Power is 5/5 in all four extremities. SKIN: No rashes or subcutaneous nodules. LYMPHATIC: No cervical lymphadenopathy. PSYCHIATRIC: Normal mood, normal affect, the patient is oriented to person, place, and time. LABORATORY DATA: Ms. Joe' labs and investigations were reviewed. I reviewed her electrocardiogram, which shows normal sinus rhythm with premature ventricular complexes, no ST changes to suggest an acute coronary syndrome. I also reviewed her chest x-ray, which shows cardiomegaly and pulmonary vascular engorgement. She has normal white count, normal platelet count, normal hemoglobin, normal sodium, decreased potassium of 3.0, elevated blood urea nitrogen of 27, elevated creatinine of 1.19, last known creatinine 1.11 on July 16, 2018, normal magnesium, mildly elevated total bilirubin of 1.4, normal AST, normal ALT, normal alkaline phosphatase, and normal calcium level. ASSESSMENT AND PLAN: Ms. Joe is a pleasant 78-year-old lady, who was seen at [facility] on July 18, 2018. Her problem list includes: 1. Acute on chronic combined systolic and diastolic heart failure: Ms. Joe is presenting with acute on chronic combined systolic and diastolic congestive heart failure, ACC/AHA class C and NYHA stage III. She will be admitted to the hospital for further management. She will be treated with intravenous diuretics. Cardiology Service will also be consulted for opinion and help with further management. 2. Chronic kidney disease, stage 3: She will be receiving diuretics, therefore, her creatinine will be followed closely. 3. Ischemic cardiomyopathy: She has AICD. 4. Coronary artery disease: We will continue aspirin and Plavix. Many thanks for allowing me to participate in the patient's care. Please feel free to contact me with any questions or concerns. LEVEL OF RISK: High. LEVEL OF COMPLEXITY: High. Job ID: [id number]
[2018-07-18] MEDS ORDERED: Potassium Chloride 20 MEQ TAB PO SCH (12:45)
[2018-07-18] MEDS ORDERED: Furosemide 40 MG/4 ML VIAL SLOW IVP SCH (14:00)
[2018-07-18] MEDS: Furosemide 20 MG/2 ML VIAL SLOW IVP SCH (14:27)
--- NOTE | 2018-07-18 20:11 | CON ---
DATE OF CONSULTATION: 07/18/2018 PRIMARY TECHNOLOGY DIRECTOR: Dr. Laughlin. REASON FOR ADMISSION: Congestive heart failure, systolic, acute on chronic. HISTORY OF PRESENT ILLNESS: Ms. Joe is a very delightful 78-year-old woman with history of recurrent congestive heart failure. The patient has a long history of congestive heart failure. She has had multiple admissions. She was recently discharged from the hospital after being treated for congestive heart failure. She gradually had increased difficulty breathing. Chest x-ray showed pulmonary edema and hypokalemia was seen on blood testing. She was transferred here. The patient had no chest pain or pressure. She feels much better now. She is able to lay flat now. Past medical history of coronary artery disease with previous stent implantation. SOCIAL HISTORY: No alcohol or tobacco. MEDICATIONS: Unfortunately, the patient is resistant to taking any significant amounts of medications which she calls "chemicals." The medications she said she was taking at home was furosemide 80 mg twice a day and Metolazone. To her knowledge, she was not taking potassium. She does not wish to take ANILA inhibitors as she said her family members have had problems with this including allergic responses. PAST MEDICAL HISTORY: 1. Congestive heart failure, systolic. 2. History of coronary artery disease with previous stent implantation. REVIEW OF SYSTEMS: CONSTITUTIONAL: No significant weight gain. No loss of vision. No changes in hearing. No changes in pulmonary. No cough or wheezing. GASTROINTESTINAL: No nausea, vomiting, or diarrhea. SKIN: No rashes. NEUROLOGIC: No unilateral weakness or numbness. PSYCHIATRIC: No unusual depression or anxiety. PHYSICAL EXAMINATION: GENERAL: She is a very pleasant 78-year-old woman, resting comfortably, in no distress. VITAL SIGNS: Blood pressure 99/60, pulse 90. LUNGS: Clear. CARDIAC: Normal S1, normal S2. No murmur, rub, or gallop. ABDOMEN: Soft, nontender. No hepatosplenomegaly. EXTREMITIES: Warm and dry. No clubbing or cyanosis. She has no edema. She has a Hep-Lock in the right foot. Apparently, it is very difficult to find the IV access. LABORATORY DATA: Most recent potassium was yesterday evening of 3.0, creatinine 1.19. The patient reports that she thinks she was taken off potassium after the last admission. EKG shows what looks like an old anterior infarct. BNP is 1628. Chest x-ray did show pulmonary edema. ASSESSMENT: 1. Recurrent congestive heart failure. 2. Resistance to taking medications. 3. History of coronary artery disease. PLAN: 1. I had a long discussion with the patient about taking medications. I would recommend a consideration for medicines for heart failure. She said she did not wish to take ANILA inhibitors. Discussed that Entresto would be a very helpful medication to try to help her stay out of heart failure. We had a long discussion about medications. She declines any other medications. 2. We will reduce diuretics because she out of heart failure now. Continue to replete potassium. Dr. Laughlin will resume care tomorrow. Job ID: [id number]
[2018-07-18] MEDS: Oxymetazoline HCl 0.05% ( 15 ML ) NASAL SCH (23:05)
[2018-07-18] MEDS: Ondansetron PF 4 MG/2 ML Vial SLOW IVP PRN (23:05)
[2018-07-19 00:06] LABS: Anion Gap 15 mmol/L (10-20); BUN (Urea Nitrogen) 30 mg/dL (9.8-20.1); Calc. Creatinine Clearance 46 mL/min (70-130); Calcium 9.1 mg/dL (7.8-10.44); Carbon Dioxide 23 mmol/L (23-31); Chloride 103 mmol/L (98-107); Estimated GFR-MDRD 45; Glucose 152 mg/dL (83-110); Magnesium 1.8 mg/dL (1.6-2.6); Potassium 3.8 mmol/L (3.5-5.1); Sodium 137 mmol/L (136-145)
[2018-07-19 06:25] LABS: BUN (Urea Nitrogen) 30 mg/dL (9.8-20.1); Calc. Creatinine Clearance 46 mL/min (70-130); Carbon Dioxide 17 mmol/L (23-31); Estimated GFR-MDRD 45; Glucose 110 mg/dL (83-110)
[2018-07-19] MEDS: Furosemide 20 MG/2 ML VIAL SLOW IVP SCH ×2 (06:44→14:49)
[2018-07-19 07:15] LABS: Calcium 7.1 mg/dL (7.8-10.44); Chloride 105 mmol/L (98-107); Potassium 4.2 mmol/L (3.5-5.1); Sodium 138 mmol/L (136-145)
[2018-07-19 07:18] LABS: Anion Gap 20 mmol/L (10-20)
[2018-07-19] MEDS: Aspirin 81 mg Enteric Coated Tablet PO SCH (08:45)
[2018-07-19] MEDS: Enoxaparin Sodium 40 MG/0.4 ML SYRINGE SC SCH (08:45)
[2018-07-19] MEDS: Clopidogrel Bisulfate 75 MG TAB PO SCH (08:45)
[2018-07-19] MEDS: Oxymetazoline HCl 0.05% ( 15 ML ) NASAL SCH ×2 (08:47→20:48)
[2018-07-19 10:56] LABS: Band 7 % (5-11); Hemoglobin 15.1 g/dL (12.0-16.0); Lymphocytes 31 % (21-51); MDiff Complete? YES; Mean Corpuscular HGB CONC 33.6 g/dL (32.0-36.0); Mean Corpuscular Volume 98.2 fL (78.0-98.0); Mean Platelet Volume 8.9 fL (7.4-10.4); Monocytes 7 % (0-10); Neutrophil 53 % (42-75); Platelet Count 242 thou/uL (130-400); RBC Distribution Width 14.5 % (11.5-14.5); Reactive Lymphocytes 2 % (0-10); Red Blood Cell (RBC) Count 4.57 mill/uL (4.20-5.40); White Blood Cell (WBC) Count 7.3 thou/uL (4.8-10.8)
--- NOTE | 2018-07-19 10:58 | PDOC.PN ---
- Subjective Encounter Start Date: 07/19/18 Encounter Start Time: 08:40 Pt seen for followup re: CHF exacerbation. Feels slightly better. - Objective Resuscitation Status - Order Detail: 07/18/18 10:19 Resuscitation Status Routine Resuscitation Status: FULL: Full Resuscitation Discussed with: patient CARLOS Reviewed: Yes Vital Signs & Weight: Vital Signs (12 hours) Temp Pulse Resp BP BP BP Pulse Ox 07/19/18 07:48 98 07/19/18 07:45 97.8 F 80 16 99/59 L 98 07/19/18 05:37 105/63 07/19/18 04:00 96.4 F L 70 12 89/52 L 96 Weight Admit Weight 189 lb 9.6 oz Weight 189 lb I&O: 07/18/18 07/19/18 07/20/18 06:59 06:59 06:59 Intake Total 1120 Output Total 400 8150 Balance -726 -2346 Result Diagrams: 07/19/18 04:40 EKG Reviewed by me: Yes (Tele: NSR) Phys Exam - Physical Examination Constitutional: NAD HEENT: moist MMs, sclera anicteric, oral pharynx no lesions, 2+ tonsils Neck: no nodes, no JVD, supple, full ROM Ian crackles Cardiovascular: RRR, no rub S1, S2 Gastrointestinal: soft, non-tender, no distention, positive bowel sounds Neurological: moves all 4 limbs Psychiatric: normal affect, A&O x 3 Dx/Plan (1) Acute on chronic combined systolic and diastolic ACC/AHA stage C congestive heart failure Code(s): I50.43 - ACUTE ON CHRONIC COMBINED SYSTOLIC AND DIASTOLIC HRT FAIL Status: Acute Comment: continue IV furosemide (2) CAD, multiple vessel Code(s): I25.10 - ATHSCL HEART DISEASE OF [place] CORONARY ARTERY W/O ANG PCTRS Status: Chronic Comment: stable (3) Ischemic cardiomyopathy Code(s): I25.5 - ISCHEMIC CARDIOMYOPATHY Status: Chronic Comment: EF 10-15% now, AICD already in place. Pt refused Entresto. (4) Obesity (BMI 30-39.9) Code(s): E66.9 - OBESITY, UNSPECIFIED Status: Chronic Comment: stable - Plan * . Review of Systems - Review of Systems Constitutional: negative: fever, chills, sweats, weakness, malaise Respiratory: SOB with Excertion. negative: Cough, Shortness of Breath, Pleuritic Pain, Wheezing Cardiovascular: orthopnea. negative: chest pain, palpitations, paroxysmal nocturnal dyspnea, edema, light headedness Gastrointestinal: negative: Nausea, Vomiting, Abdominal Pain, Diarrhea, Constipation, Melena, Hematochezia Genitourinary: negative: Dysuria, Frequency, Incontinence, Hematuria, Retention Skin: negative: Rash, Lesions, Doni, Bruising - Medications/Allergies Allergies/Adverse Reactions: Allergies Allergy/AdvReac Type Severity Reaction Status Date / Time ciprofloxacin [From Cipro] Allergy Verified 05/31/18 02:09 tetracycline Allergy Verified 05/31/18 02:09 Medications: Current Medications Aspirin (Ecotrin) 81 mg PO DAILY [facility] Last Admin: 07/19/18 08:45 Dose: 81 mg Clopidogrel Bisulfate (Plavix) 75 mg PO DAILY [facility] Last Admin: 07/19/18 08:45 Dose: 75 mg Enoxaparin Sodium (Lovenox) 40 mg SC 0900 [facility] Last Admin: 07/19/18 08:45 Dose: 40 mg Furosemide (Lasix) 20 mg SLOW IVP 0600,1400 [facility] Last Admin: 07/19/18 06:44 Dose: 20 mg Nitroglycerin (Nitrostat) 0.4 mg SL Q5MIN PRN PRN Reason: Chest Pain Ondansetron HCl (Zofran) 4 mg SLOW IVP Q6H PRN PRN Reason: Nausea/Vomiting Last Admin: 07/18/18 23:05 Dose: 4 mg Oxymetazoline HCl (Oxymetazoline Hcl) 0 sprays NASAL BID [facility] Stop: 07/21/18 09:01 Last Admin: 07/19/18 08:47 Dose: 1 spr Sodium Chloride (Flush - Normal Saline) 10 ml IVF Q12HR [facility] Last Admin: 07/19/18 08:49 Dose: 10 ml Sodium Chloride (Flush - Normal Saline) 10 ml IVF PRN PRN PRN Reason: Saline Flush
--- NOTE | 2018-07-19 18:38 | PDOC.CTH ---
Cardiology Progress Note - Subjective She is doing better. We had a long conversation about the effects of the medication on her heart and the need for compliance she states she has been compliant with the Plavix but tells me she has not been with lasix and metolazone. - Objective Vital Signs Temp Pulse Resp BP Pulse Ox 07/19/18 11:13 98 F 82 16 106/67 95 07/19/18 07:48 98 07/19/18 07:45 97.8 F 80 16 99/59 L 98 Admit Weight 189 lb 9.6 oz Weight 189 lb 07/18/18 07/19/18 07/20/18 06:59 06:59 06:59 Intake Total 1120 Output Total 400 8150 Balance -400 -7030 - Physical Examination General/Neuro: alert & oriented x3, NAD Neck: no JVD present Lungs: unlabored respirations Heart: RRR Abdomen: NT/ND Extremities: + edema B (none) - Telemetry Telemetry Rhythm: NSR - Labs Result Diagrams: 07/19/18 04:40 07/19/18 04:40 - Assessment/Plan 1. Acute on chronic systolic heart failure. 2. CD s/sp LAD stent FLACO 3. Resistance to taking medications. 4. AICD present. PLAN: - She has agreed to try BB. Will add very low dose Coreg see if she can tolerate this. BP too low to start ARB. - Continue IV lasix.
[2018-07-19] MEDS: Ondansetron PF 4 MG/2 ML Vial SLOW IVP PRN (20:47)
[2018-07-19] MEDS ORDERED: Bisacodyl 10 MG SUPP PR PRN (23:19)
[2018-07-20] MEDS: Furosemide 20 MG/2 ML VIAL SLOW IVP SCH ×2 (06:20→14:08)
[2018-07-20] MEDS: Enoxaparin Sodium 40 MG/0.4 ML SYRINGE SC SCH (08:32)
[2018-07-20] MEDS: Clopidogrel Bisulfate 75 MG TAB PO SCH (08:33)
[2018-07-20] MEDS: Carvedilol 3.125 MG TAB PO SCH ×2 (08:33→16:31)
[2018-07-20] MEDS: Aspirin 81 mg Enteric Coated Tablet PO SCH (08:33)
[2018-07-20] MEDS: Oxymetazoline HCl 0.05% ( 15 ML ) NASAL SCH (08:34)
[2018-07-20] MEDS ORDERED: Polyethylene Glycol 3350 17 GM Packet PO SCH (11:45)
[2018-07-20] MEDS ORDERED: Furosemide 20 MG/2 ML VIAL SLOW IVP SCH (15:24)
--- NOTE | 2018-07-20 15:27 | PDOC.CTH ---
Cardiology Progress Note - Subjective She is feeling better. Still her appetite is an issues. - Objective Vital Signs Temp Pulse Pulse Pulse Resp BP BP 07/20/18 11:55 98.5 F 79 14 07/20/18 10:50 100 91 100/63 101/66 07/20/18 08:00 98.4 F 68 16 BP BP Pulse Ox Pulse Ox 07/20/18 11:55 99/61 98 07/20/18 10:50 98 07/20/18 08:00 107/61 100 Admit Weight 189 lb 9.6 oz Weight 188 lb 4.8 oz 07/19/18 07/20/18 07/21/18 06:59 06:59 06:59 Intake Total 1120 1460 Output Total 8150 2800 Balance -7030 -1340 - Physical Examination General/Neuro: alert & oriented x3, NAD Neck: no JVD present Lungs: CTA, unlabored respirations Heart: RRR Abdomen: NT/ND Extremities: other: (no edema.) - Telemetry Telemetry Rhythm: NSR - Labs Result Diagrams: 07/19/18 04:40 07/19/18 04:40 - Assessment/Plan 1. Acute on chronic systolic heart failure. 2. CD s/p LAD stent FLACO 3. Resistance to taking medications. 4. AICD present. PLAN: - Tolerating very low dose coreg but BP too low to start ACEI/ARB/Entresto or Aldactone. - Will continue one more day of IV lasix and then switch to PO after Saturdays IV doses. - Will follow.
--- NOTE | 2018-07-20 20:41 | PDOC.PN ---
- Subjective Encounter Start Date: 07/20/18 Encounter Start Time: 10:30 Patient seen and examined for CHF. SOB is improving. No CP. No new complaints. No overnight events - Objective Resuscitation Status - Order Detail: 07/18/18 10:19 Resuscitation Status Routine Resuscitation Status: FULL: Full Resuscitation Discussed with: patient MAR Reviewed: Yes Vital Signs & Weight: Vital Signs (12 hours) Temp Pulse Pulse Pulse Resp BP BP 07/20/18 19:45 97.8 F 86 16 07/20/18 15:48 97.4 F L 84 16 07/20/18 11:55 98.5 F 79 14 07/20/18 10:50 100 91 100/63 101/66 BP BP BP Pulse Ox Pulse Ox 07/20/18 19:45 100/59 L 92 L 07/20/18 15:48 100/63 99 07/20/18 11:55 99/61 98 07/20/18 10:50 98 Weight Admit Weight 189 lb 9.6 oz Weight 188 lb 4.8 oz I&O: 07/19/18 07/20/18 07/21/18 06:59 06:59 06:59 Intake Total 1120 1460 1120 Output Total 8150 2800 1200 Balance -7030 -1340 -80 Result Diagrams: 07/21/18 04:57 07/21/18 04:57 EKG Reviewed by me: Yes (Tele SR) Phys Exam - Physical Examination Constitutional: NAD Respiratory: no wheezing, no rhonchi few rales at bases Cardiovascular: RRR, no rub Gastrointestinal: soft, non-tender, positive bowel sounds Musculoskeletal: no edema Neurological: moves all 4 limbs Dx/Plan (1) Acute on chronic combined systolic and diastolic ACC/AHA stage C congestive heart failure Code(s): I50.43 - ACUTE ON CHRONIC COMBINED SYSTOLIC AND DIASTOLIC HRT FAIL Status: Acute (2) Hypokalemia Code(s): E87.6 - HYPOKALEMIA Status: Acute (3) HTN (hypertension) Code(s): I10 - ESSENTIAL (PRIMARY) HYPERTENSION Status: Chronic (4) Obesity (BMI 30-39.9) Code(s): E66.9 - OBESITY, UNSPECIFIED Status: Chronic (5) CAD (coronary artery disease) Code(s): I25.10 - ATHSCL HEART DISEASE OF [place] CORONARY ARTERY W/O ANG PCTRS Status: Chronic - Plan DVT proph w/lovenox, DVT proph w/SCDs Cont IV diuresis -: AM labs -: Replace Potassium -: On low dose Coreg -: Not on ACEI/ARB due to BP on lower side Review of Systems - Review of Systems Cardiovascular: negative: chest pain, palpitations, orthopnea, paroxysmal nocturnal dyspnea, edema, light headedness, other Gastrointestinal: negative: Nausea, Vomiting, Abdominal Pain, Diarrhea, Constipation, Melena, Hematochezia, Other - Medications/Allergies Allergies/Adverse Reactions: Allergies Allergy/AdvReac Type Severity Reaction Status Date / Time ciprofloxacin [From Cipro] Allergy Verified 05/31/18 02:09 tetracycline Allergy Verified 05/31/18 02:09 Medications: Current Medications Aspirin (Ecotrin) 81 mg PO DAILY [facility] Last Admin: 07/20/18 08:33 Dose: 81 mg Bisacodyl (Dulcolax) 10 mg [place] HSPRN PRN PRN Reason: Constipation Last Admin: 07/20/18 17:39 Dose: 10 mg Carvedilol (Coreg) 1.562 mg PO BID-[facility] Last Admin: 07/20/18 16:31 Dose: 1.562 mg Clopidogrel Bisulfate (Plavix) 75 mg PO DAILY [facility] Last Admin: 07/20/18 08:33 Dose: 75 mg Enoxaparin Sodium (Lovenox) 40 mg SC 0900 [facility] Last Admin: 07/20/18 08:32 Dose: 40 mg Fluticasone Propionate (Flonase Nasal [place]) 0 gm NASAL DAILY [facility] Furosemide (Lasix) 40 mg PO 0900,1400 [facility] Nitroglycerin (Nitrostat) 0.4 mg SL Q5MIN PRN PRN Reason: Chest Pain Ondansetron HCl (Zofran) 4 mg SLOW IVP Q6H PRN PRN Reason: Nausea/Vomiting Last Admin: 07/19/18 20:47 Dose: 4 mg Polyethylene Glycol (Miralax) 17 gm PO DAILY [facility] Sodium Chloride (Flush - Normal Saline) 10 ml IVF Q12HR [facility] Last Admin: 07/20/18 08:34 Dose: 10 ml Sodium Chloride (Flush - Normal Saline) 10 ml IVF PRN PRN PRN Reason: Saline Flush
[2018-07-20 21:51] LABS: Anion Gap 14 mmol/L (10-20); BUN (Urea Nitrogen) 38 mg/dL (9.8-20.1); Calc. Creatinine Clearance 40 mL/min (70-130); Calcium 9.2 mg/dL (7.8-10.44); Carbon Dioxide 24 mmol/L (23-31); Chloride 99 mmol/L (98-107); Estimated GFR-MDRD 39; Glucose 169 mg/dL (83-110); Magnesium 1.6 mg/dL (1.6-2.6); Sodium 134 mmol/L (136-145)
[2018-07-20] MEDS ORDERED: Potassium Chloride 20 MEQ TAB PO SCH (22:15)
[2018-07-21 06:21] LABS: Hemoglobin 15.2 g/dL (12.0-16.0); Platelet Count 254 thou/uL (130-400)
[2018-07-21 06:42] LABS: Anion Gap 15 mmol/L (10-20); BUN (Urea Nitrogen) 39 mg/dL (9.8-20.1); Calc. Creatinine Clearance 45 mL/min (70-130); Calcium 9.4 mg/dL (7.8-10.44); Carbon Dioxide 28 mmol/L (23-31); Chloride 99 mmol/L (98-107); Estimated GFR-MDRD 44; Glucose 110 mg/dL (83-110); Magnesium 2.1 mg/dL (1.6-2.6); Potassium 3.2 mmol/L (3.5-5.1); Sodium 139 mmol/L (136-145)
[2018-07-21] MEDS: Carvedilol 3.125 MG TAB PO SCH ×2 (08:25→17:45)
[2018-07-21] MEDS: Aspirin 81 mg Enteric Coated Tablet PO SCH (08:26)
[2018-07-21] MEDS: Clopidogrel Bisulfate 75 MG TAB PO SCH (08:27)
[2018-07-21] MEDS: Furosemide 20 MG TAB PO SCH ×2 (08:27→13:23)
[2018-07-21] MEDS: Polyethylene Glycol 3350 17 GM Packet PO SCH (08:28)
[2018-07-21] MEDS: Enoxaparin Sodium 40 MG/0.4 ML SYRINGE SC SCH (08:28)
[2018-07-21] MEDS: Fluticasone Propionate Nasal Spray 16 gm Bottle NASAL SCH (08:28)
[2018-07-21] MEDS: Potassium Chloride 20 MEQ TAB PO SCH ×2 (08:39→17:45)
[2018-07-21] MEDS ORDERED: Furosemide 20 MG TAB PO SCH (09:00)
--- NOTE | 2018-07-21 14:18 | PDOC.PN ---
- Subjective Encounter Start Date: 07/21/18 Encounter Start Time: 11:00 Patient seen and examined for CHF exacerbation. SOB improving. No new complaints. No overnight events - Objective Resuscitation Status - Order Detail: 07/18/18 10:19 Resuscitation Status Routine Resuscitation Status: FULL: Full Resuscitation Discussed with: patient CARLOS Reviewed: Yes Vital Signs & Weight: Vital Signs (12 hours) Temp Pulse Resp BP BP Pulse Ox 07/21/18 12:00 98.7 F 95 16 104/77 98 07/21/18 08:49 98.3 F 73 18 101/55 L 98 07/21/18 03:31 96.4 F L 74 14 93/65 97 Weight Admit Weight 189 lb 9.6 oz Weight 189 lb 1.6 oz I&O: 07/20/18 07/21/18 07/22/18 06:59 06:59 06:59 Intake Total 1460 1360 Output Total 2800 1800 Balance -1340 -440 Result Diagrams: 07/21/18 04:57 07/21/18 04:57 EKG Reviewed by me: Yes (Tele SR, NSVT earlier) Phys Exam - Physical Examination Constitutional: NAD Respiratory: no wheezing, no rhonchi Cardiovascular: RRR, no rub Gastrointestinal: soft, non-tender, positive bowel sounds Musculoskeletal: no edema Neurological: moves all 4 limbs Dx/Plan (1) Acute on chronic combined systolic and diastolic ACC/AHA stage C congestive heart failure Code(s): I50.43 - ACUTE ON CHRONIC COMBINED SYSTOLIC AND DIASTOLIC HRT FAIL Status: Acute (2) Hypokalemia Code(s): E87.6 - HYPOKALEMIA Status: Acute (3) HTN (hypertension) Code(s): I10 - ESSENTIAL (PRIMARY) HYPERTENSION Status: Chronic (4) Obesity (BMI 30-39.9) Code(s): E66.9 - OBESITY, UNSPECIFIED Status: Chronic (5) CAD (coronary artery disease) Code(s): I25.10 - ATHSCL HEART DISEASE OF [place] CORONARY ARTERY W/O ANG PCTRS Status: Chronic (6) NSVT (nonsustained ventricular tachycardia) Code(s): I47.2 - VENTRICULAR TACHYCARDIA Status: Acute - Plan DVT proph w/lovenox, DVT proph w/SCDs Cont PO Lasix -: Cont low dose Coreg -: Replace Potassium -: Not on ACEI/ARB or Aldactone due to low BP Review of Systems - Review of Systems Respiratory: negative: Cough, Dry, Shortness of Breath, Hemoptysis, SOB with Excertion, Pleuritic Pain, Sputum, Wheezing Cardiovascular: negative: chest pain, palpitations, orthopnea, paroxysmal nocturnal dyspnea, edema, light headedness, other - Medications/Allergies Allergies/Adverse Reactions: Allergies Allergy/AdvReac Type Severity Reaction Status Date / Time ciprofloxacin [From Cipro] Allergy Verified 05/31/18 02:09 tetracycline Allergy Verified 05/31/18 02:09 Medications: Current Medications Aspirin (Ecotrin) 81 mg PO DAILY [facility] Last Admin: 07/21/18 08:26 Dose: 81 mg Bisacodyl (Dulcolax) 10 mg [place] HSPRN PRN PRN Reason: Constipation Last Admin: 07/20/18 17:39 Dose: 10 mg [facility] Last Admin: 07/21/18 08:25 Dose: 1.562 mg Clopidogrel Bisulfate (Plavix) 75 mg PO DAILY [facility] Last Admin: 07/21/18 08:27 Dose: 75 mg Enoxaparin Sodium (Lovenox) 40 mg SC 0900 [facility] Last Admin: 07/21/18 08:28 Dose: 40 mg Fluticasone Propionate (Flonase Nasal [place]) 0 gm NASAL DAILY [facility] Last Admin: 07/21/18 08:28 Dose: 2 spr Furosemide (Lasix) 40 mg PO 0900,1400 [facility] Last Admin: 07/21/18 13:23 Dose: 40 mg Nitroglycerin (Nitrostat) 0.4 mg SL Q5MIN PRN PRN Reason: Chest Pain Ondansetron HCl (Zofran) 4 mg SLOW IVP Q6H PRN PRN Reason: Nausea/Vomiting Last Admin: 07/19/18 20:47 Dose: 4 mg Polyethylene Glycol (Miralax) 17 gm PO DAILY [facility] Last Admin: 07/21/18 08:28 Dose: 17 gm Potassium Chloride (K[facility]Dur) [facility] Stop: 07/22/18 08:01 Last Admin: 07/21/18 08:39 Dose: 40 meq Sodium Chloride (Flush - Normal Saline) 10 ml IVF Q12HR [facility] Last Admin: 07/21/18 08:29 Dose: 10 ml Sodium Chloride (Flush - Normal Saline) 10 ml IVF PRN PRN PRN Reason: Saline Flush
--- NOTE | 2018-07-21 15:33 | PDOC.CTH ---
<Lili Rutherford - Last Filed: 07/21/18 16:01> Cardiology Progress Note - Subjective The pt seen and examined. No overnight events. No cardiac complaints. - Objective Vital Signs Temp Pulse Resp BP Pulse Ox 07/21/18 12:00 98.7 F 95 16 104/77 98 07/21/18 08:49 98.3 F 73 18 101/55 L 98 Admit Weight 189 lb 9.6 oz Weight 189 lb 1.6 oz 07/20/18 07/21/18 07/22/18 06:59 06:59 06:59 Intake Total 1460 1360 Output Total 2800 1800 Balance -1340 -440 - Physical Examination General/Neuro: alert & oriented x3 Neck: no JVD present Lungs: other: (Diminished at bases) Heart: RRR Abdomen: soft Extremities: other: (no edema) - Telemetry Telemetry Rhythm: SR 60-70s - Labs Result Diagrams: 07/21/18 04:57 07/21/18 04:57 - Assessment/Plan 1. Acute on chronic combined HF - stable with Lasix 40mg BID and Coreg 3.125mg 1 /2tab BID; Not on ANILA/ARB due to hx of CKD. 2. CAD with s/p FLACO stent to LAD in 05/2018 - On BBlocker, ASA and Plavix; 3. HTN - stable 4. AICD present 5. NSVT this AM - 6. Resistance to taking medications - The pt refused to take ANILA/ARB (including Entresto). 7. Hypokalemia - Kcl replacement today. 8. CKD - no changed; MAR reviewed * Echo on 07/15/18 showed EF 15-20%, grade III diastolic dysfunction, severe MR , dilated IVC. Review of Systems - Review of Systems Constitutional: reports: no symptoms reported EENTM: reports: no symptoms reported Respiratory: reports: no symptoms reported Cardiac (ROS): reports: no symptoms reported ABD/GI: reports: no symptoms reported : reports: no symptoms reported <Betzaida Navas - Last Filed: 07/21/18 17:43> Cardiology Progress Note - Objective Vital Signs Temp Pulse Resp BP Pulse Ox 07/21/18 12:00 98.7 F 95 16 104/77 98 07/21/18 08:49 98.3 F 73 18 101/55 L 98 Admit Weight 189 lb 9.6 oz Weight 189 lb 1.6 oz 07/20/18 07/21/18 07/22/18 06:59 06:59 06:59 Intake Total 1460 1360 Output Total 2800 1800 Balance -1340 -440 - Labs Result Diagrams: 07/21/18 04:57 07/21/18 04:57 - Assessment/Plan pt. seen and eval. by me. I agree with the A/P by the CLINICAL EDUCATOR. She has diuresed and is feeling better. Short episode of NSVTACH. asymptomatic. On [place]. Has an AICD. Does not want to take other meds. Chest clear. RRR.No edema now.
[2018-07-22 06:17] LABS: Anion Gap 15 mmol/L (10-20); BUN (Urea Nitrogen) 41 mg/dL (9.8-20.1); Calc. Creatinine Clearance 47 mL/min (70-130); Calcium 9.4 mg/dL (7.8-10.44); Carbon Dioxide 27 mmol/L (23-31); Chloride 100 mmol/L (98-107); Estimated GFR-MDRD 46; Glucose 131 mg/dL (83-110); Magnesium 2.1 mg/dL (1.6-2.6); Potassium 4.2 mmol/L (3.5-5.1); Sodium 138 mmol/L (136-145)
[2018-07-22] MEDS: Carvedilol 3.125 MG TAB PO SCH ×2 (08:09→18:17)
[2018-07-22] MEDS: Polyethylene Glycol 3350 17 GM Packet PO SCH (08:09)
[2018-07-22] MEDS: Aspirin 81 mg Enteric Coated Tablet PO SCH (08:10)
[2018-07-22] MEDS: Furosemide 20 MG TAB PO SCH ×2 (08:10→14:50)
[2018-07-22] MEDS: Clopidogrel Bisulfate 75 MG TAB PO SCH (08:10)
[2018-07-22] MEDS: Enoxaparin Sodium 40 MG/0.4 ML SYRINGE SC SCH (08:10)
[2018-07-22] MEDS: Potassium Chloride 20 MEQ TAB PO SCH (08:10)
[2018-07-22] MEDS ORDERED: Furosemide 20 MG TAB PO SCH (09:00)
[2018-07-22] MEDS: Fluticasone Propionate Nasal Spray 16 gm Bottle NASAL SCH (09:47)
--- NOTE | 2018-07-22 12:35 | PRG ---
DATE OF SERVICE: 07/22/2018 SUBJECTIVE: The patient is seen and examined at bedside. She complains of both shortness of breath on ambulation and lack of good bowel movement for the last week or so. Apparently, she had some home medications and the most she had was a small amount of a bowel movement last night. OBJECTIVE: VITAL SIGNS: Blood pressure is 99/60, pulse is 79, respirations 20, O2 saturation is 99% on room air. HEENT: Head is atraumatic, normocephalic. Eyes, PERRLA. Sclerae is nonicteric. Oral mucosa is moist. NECK: Supple. No lymphadenopathy. Thyroid is not palpable. JVD 1+ symmetric bilaterally. LUNGS: Breath sounds somewhat diminished at both bases. HEART: S1, S2 distant. No S3, no S4. ABDOMEN: Soft, nontender, nondistended. Peristalsis within normal limits. EXTREMITIES: No clubbing, cyanosis, or edema. NEUROLOGICAL: She is alert and oriented x4. There is no motor or sensory deficits present. Cranial nerves are intact. LABORATORY DATA: Labs showed sodium of 138, potassium 4.2, chloride 100, CO2 of 27, BUN 41, creatinine 1.34, glucose 131, calcium 9.4, and magnesium 2.1. IMPRESSION: 1. Acute on chronic combined systolic and diastolic congestive heart failure. 2. Hypokalemia, corrected. 3. Hypertension, corrected. 4. Coronary artery disease, chronic and stable. 5. Nonsustained ventricular tachycardia. 6. Constipation. PLAN: Continue current regimen with oral Lasix and Coreg. Continue clopidogrel. Continue aspirin, soaps enema x1 and apparently, the patient is refusing ANILA/ARB including Entresto treatment. Job ID: [id number]
--- NOTE | 2018-07-22 12:43 | PDOC.CTH ---
<KrishLili - Last Filed: 07/22/18 12:43> Cardiology Progress Note - Subjective The pt seen and examined. No overnight events. No cardiac complaints. She stated she has not had BM since last Monday. - Objective Vital Signs Temp Pulse Resp BP BP Pulse Ox 07/22/18 08:10 98.7 F 81 18 112/69 98 07/22/18 05:42 99 07/22/18 04:07 97.0 F L 79 20 99/60 99 Admit Weight 189 lb 9.6 oz Weight 188 lb 6.391 oz 07/21/18 07/22/18 07/23/18 06:59 06:59 06:59 Intake Total 1360 1127 Output Total 1800 1400 Balance -440 -273 - Physical Examination General/Neuro: alert & oriented x3 Neck: no JVD present Lungs: other: (diminished at bases) Heart: RRR Abdomen: soft Extremities: other: (No edema) - Telemetry Telemetry Rhythm: SR 90s - Labs Result Diagrams: 07/21/18 04:57 07/22/18 04:42 - Assessment/Plan 1. Acute on chronic combined HF - stable with Lasix 40mg BID and Coreg 3.125mg 1 /2tab BID; Not on ANILA/ARB due to hx of CKD. 2. CAD with s/p FLACO stent to LAD in 05/2018 - On BBlocker, ASA and Plavix; 3. HTN - stable 4. AICD present 5. NSVT this AM - No more episodes; On BBlocker. She cont. refusing taking other medication. 6. Resistance to taking medications - The pt refused to take ANILA/ARB (including Entresto). 7. Hypokalemia - stable 8. CKD - slightly improving. 9. Constipation - has not had BM since last Monday. MAR reviewed * Echo on 07/15/18 showed EF 15-20%, grade III diastolic dysfunction, severe MR , dilated IVC. * the pt cont. refusing to take other meds. Chest clear. RRR.No edema now. Review of Systems - Review of Systems Constitutional: reports: no symptoms reported EENTM: reports: no symptoms reported Respiratory: reports: no symptoms reported Cardiac (ROS): reports: no symptoms reported ABD/GI: reports: no symptoms reported : reports: no symptoms reported Musculoskeletal: reports: no symptoms reported Skin: reports: no symptoms reported <Betzaida Navas - Last Filed: 07/22/18 22:01> Cardiology Progress Note - Objective Vital Signs Temp Pulse Pulse Pulse Resp BP BP 07/22/18 19:35 07/22/18 19:29 98.2 F 84 16 07/22/18 15:46 97.5 F L 88 16 07/22/18 12:46 90 90 114/72 101/63 07/22/18 11:13 97.6 F 94 18 07/22/18 10:13 92 18 BP BP Pulse Ox 07/22/18 19:35 95 07/22/18 19:29 100/70 95 07/22/18 15:46 97/73 100 07/22/18 12:46 07/22/18 11:13 111/74 96 07/22/18 10:13 96/74 Admit Weight 189 lb 9.6 oz Weight 188 lb 6.391 oz 07/21/18 07/22/18 07/23/18 06:59 06:59 06:59 Intake Total 1360 1127 1200 Output Total 1800 1400 600 Balance -440 -273 600 - Labs Result Diagrams: 07/21/18 04:57 07/22/18 04:42 - Assessment/Plan Pt. seen and eval. by me. I agree with the A/P by the [employer]. She is feelng better today after a bowel movement. Chest clear. RRR. No edema.
--- NOTE | 2018-07-23 08:44 | PDOC.PN ---
- Subjective Encounter Start Date: 07/23/18 Encounter Start Time: 08:42 Subjective: no st pain or sob - Objective Resuscitation Status - Order Detail: 07/18/18 10:19 Resuscitation Status Routine Resuscitation Status: FULL: Full Resuscitation Discussed with: patient CARLOS Reviewed: Yes Vital Signs & Weight: Vital Signs (12 hours) Temp Pulse Resp BP BP Pulse Ox 07/23/18 07:32 97.6 F 78 14 116/56 L 07/23/18 03:55 97.4 F L 71 17 99/51 L 97 07/23/18 00:00 96.8 F L 76 17 106/68 96 Weight Admit Weight 189 lb 9.6 oz Weight 189 lb 1.003 oz I&O: 07/22/18 07/23/18 07/24/18 06:59 06:59 06:59 Intake Total 1127 1320 Output Total 1400 1700 Balance -273 -380 Result Diagrams: 07/21/18 04:57 07/22/18 04:42 Phys Exam - Physical Examination Neck: no JVD Respiratory: clear to auscultation bilateral Cardiovascular: RRR, no significant murmur Gastrointestinal: soft, positive bowel sounds Musculoskeletal: no edema Dx/Plan (1) NSVT (nonsustained ventricular tachycardia) Code(s): I47.2 - VENTRICULAR TACHYCARDIA Status: Acute (2) CAD (coronary artery disease) Code(s): I25.10 - ATHSCL HEART DISEASE OF [place] CORONARY ARTERY W/O ANG PCTRS Status: Chronic Qualifiers: Coronary Disease-Associated Artery/Lesion type: [place] artery [place] vs. transplanted heart: [place] heart Associated angina: without angina Qualified Code(s): I25.10 - Atherosclerotic heart disease of [place] coronary artery without angina pectoris (3) HTN (hypertension) Code(s): I10 - ESSENTIAL (PRIMARY) HYPERTENSION Status: Chronic Qualifiers: Hypertension type: essential hypertension Qualified Code(s): I10 - Essential (primary) hypertension (4) Acute on chronic combined systolic and diastolic ACC/AHA stage C congestive heart failure Code(s): I50.43 - ACUTE ON CHRONIC COMBINED SYSTOLIC AND DIASTOLIC HRT FAIL Status: Acute (5) CAD, multiple vessel Code(s): I25.10 - ATHSCL HEART DISEASE OF [place] CORONARY ARTERY W/O ANG PCTRS Status: Chronic Comment: stable (6) Ischemic cardiomyopathy Code(s): I25.5 - ISCHEMIC CARDIOMYOPATHY Status: Chronic Comment: EF 10-15% now, AICD already in place. Pt refused Entresto. (7) Pulmonary hypertension Code(s): I27.20 - PULMONARY HYPERTENSION, UNSPECIFIED Status: Chronic - Plan cont asa,coreg plavix,lasix po -: no ANILA/ARB due to renalfaolure -: discuss with Dr Laughlin * .
[2018-07-23] MEDS: Polyethylene Glycol 3350 17 GM Packet PO SCH (10:20)
[2018-07-23] MEDS: Enoxaparin Sodium 40 MG/0.4 ML SYRINGE SC SCH (10:20)
[2018-07-23] MEDS: Carvedilol 3.125 MG TAB PO SCH ×2 (10:21→18:08)
[2018-07-23] MEDS: Furosemide 20 MG TAB PO SCH ×2 (10:23→14:17)
[2018-07-23] MEDS: Clopidogrel Bisulfate 75 MG TAB PO SCH (10:23)
[2018-07-23] MEDS: Aspirin 81 mg Enteric Coated Tablet PO SCH (10:23)
[2018-07-23] MEDS: Fluticasone Propionate Nasal Spray 16 gm Bottle NASAL SCH (10:24)
--- NOTE | 2018-07-23 12:25 | PDOC.CTH ---
Cardiology Progress Note - Subjective No new issues. Had a BM earlier today. - Objective Vital Signs Temp Pulse Pulse Pulse Resp BP BP 07/23/18 10:30 96 92 86/47 L 110/67 07/23/18 07:32 97.6 F 78 14 07/23/18 03:55 97.4 F L 71 17 BP BP Pulse Ox Pulse Ox 07/23/18 10:30 98 07/23/18 07:32 116/56 L 07/23/18 03:55 99/51 L 97 Admit Weight 189 lb 9.6 oz Weight 189 lb 1.003 oz 07/22/18 07/23/18 07/24/18 06:59 06:59 06:59 Intake Total 1127 1320 Output Total 1400 1700 Balance -273 -380 - Physical Examination General/Neuro: alert & oriented x3, NAD Neck: no JVD present Lungs: CTA, unlabored respirations Heart: RRR Abdomen: NT/ND Extremities: other: (no edema.) - Telemetry Telemetry Rhythm: NSR - Labs Result Diagrams: 07/21/18 04:57 07/22/18 04:42 - Assessment/Plan 1. Acute on chronic systolic heart failure. 2. CD s/p LAD stent FLACO 3. Resistance to taking medications. 4. AICD present. PLAN: - Continue current regimen. - UA pending. If normal may discharge home from [facility] on current doses. - Follow up in the office in 1 month on discharge.
[2018-07-23 14:32] LABS: Bacteria/HPF 4+ HPF (None Seen); Hyaline Casts/LPF NONE SEEN LPF (0-3 Hyaline); RBC/HPF None Seen HPF (0-3); Squamous Epithelial 0-3 HPF (0-3)
--- NOTE | 2018-07-24 08:33 | PDOC.PN ---
- Subjective Encounter Start Date: 07/24/18 Encounter Start Time: 08:31 Subjective: no pain, sob, fever - Objective Resuscitation Status - Order Detail: 07/18/18 10:19 Resuscitation Status Routine Resuscitation Status: FULL: Full Resuscitation Discussed with: patient CARLOS Reviewed: Yes Vital Signs & Weight: Vital Signs (12 hours) Temp Pulse Resp BP BP Pulse Ox 07/24/18 07:44 97.7 F 68 16 95/59 L 97 07/24/18 03:14 96.4 F L 75 15 94/56 L 93 L 07/23/18 21:03 97.7 F 68 16 96/51 L 96 Weight Admit Weight 189 lb 9.6 oz Weight 188 lb 3 oz I&O: 07/23/18 07/24/18 07/25/18 06:59 06:59 06:59 Intake Total 1320 1116 Output Total 1700 2150 Balance -380 1034 Result Diagrams: 07/21/18 04:57 07/22/18 04:42 Phys Exam - Physical Examination Neck: no JVD Respiratory: clear to auscultation bilateral Cardiovascular: RRR, no significant murmur Gastrointestinal: soft, positive bowel sounds Musculoskeletal: no edema Dx/Plan (1) NSVT (nonsustained ventricular tachycardia) Code(s): I47.2 - VENTRICULAR TACHYCARDIA Status: Acute (2) CAD (coronary artery disease) Code(s): I25.10 - ATHSCL HEART DISEASE OF [place] CORONARY ARTERY W/O ANG PCTRS Status: Chronic Qualifiers: Coronary Disease-Associated Artery/Lesion type: [place] artery [place] vs. transplanted heart: [place] heart Associated angina: without angina Qualified Code(s): I25.10 - Atherosclerotic heart disease of [place] coronary artery without angina pectoris (3) HTN (hypertension) Code(s): I10 - ESSENTIAL (PRIMARY) HYPERTENSION Status: Chronic Qualifiers: Hypertension type: essential hypertension Qualified Code(s): I10 - Essential (primary) hypertension (4) Acute on chronic combined systolic and diastolic ACC/AHA stage C congestive heart failure Code(s): I50.43 - ACUTE ON CHRONIC COMBINED SYSTOLIC AND DIASTOLIC HRT FAIL Status: Acute (5) CAD, multiple vessel Code(s): I25.10 - ATHSCL HEART DISEASE OF [place] CORONARY ARTERY W/O ANG PCTRS Status: Chronic Comment: stable (6) Ischemic cardiomyopathy Code(s): I25.5 - ISCHEMIC CARDIOMYOPATHY Status: Chronic Comment: EF 10-15% now, AICD already in place. Pt refused Entresto. (7) Pulmonary hypertension Code(s): I27.20 - PULMONARY HYPERTENSION, UNSPECIFIED Status: Chronic - Plan cont asa, coreg, plavix, lasix -: urine C&S pending * .
[2018-07-24] MEDS: Polyethylene Glycol 3350 17 GM Packet PO SCH (08:50)
[2018-07-24] MEDS: Carvedilol 3.125 MG TAB PO SCH ×2 (08:50→17:40)
[2018-07-24] MEDS: Enoxaparin Sodium 40 MG/0.4 ML SYRINGE SC SCH (08:50)
[2018-07-24] MEDS: Clopidogrel Bisulfate 75 MG TAB PO SCH (08:50)
[2018-07-24] MEDS: Aspirin 81 mg Enteric Coated Tablet PO SCH (08:50)
[2018-07-24] MEDS: Furosemide 20 MG TAB PO SCH ×2 (08:52→12:59)
[2018-07-24] MEDS: Fluticasone Propionate Nasal Spray 16 gm Bottle NASAL SCH (08:55)
[2018-07-25] MEDS ORDERED: cefTRIAXone\\ROCEPHIN 1 GM in Sodium Chloride 0.9% 100 ML IVPB SCH (01:00)
[2018-07-25 07:51] VITALS: BP 108/56; TEMP 97.8
[2018-07-25] MEDS: Polyethylene Glycol 3350 17 GM Packet PO SCH (08:52)
[2018-07-25] MEDS: Enoxaparin Sodium 40 MG/0.4 ML SYRINGE SC SCH (08:52)
[2018-07-25] MEDS: Furosemide 20 MG TAB PO SCH (08:53)
[2018-07-25] MEDS: Carvedilol 3.125 MG TAB PO SCH (08:53)
[2018-07-25] MEDS: Clopidogrel Bisulfate 75 MG TAB PO SCH (08:53)
[2018-07-25] MEDS: Aspirin 81 mg Enteric Coated Tablet PO SCH (08:53)
[2018-07-25] MEDS: Fluticasone Propionate Nasal Spray 16 gm Bottle NASAL SCH (08:59)
--- NOTE | 2018-07-25 11:38 | DIS ---
DATE OF ADMISSION: 07/18/2018 DATE OF DISCHARGE: 07/25/2018 TRANSFER OF CARE: PRIMARY CARE PROVIDER: Liss Barrientos DO DISPOSITION: Discharged to home. DIAGNOSES: 1. Acute on chronic systolic-diastolic heart failure. 2. Coronary artery disease. 3. Essential hypertension. 4. Urinary tract infection. 5. Nonsustained ventricular tachycardia. 6. Ischemic cardiomyopathy. 7. Pulmonary hypertension. 8. Mitral insufficiency. DISCHARGE MEDICATIONS: 1. Lasix 40 mg p.o. b.i.d. 2. Plavix 75 mg a day. 3. Omnicef 600 mg p.o. daily x7 days. 4. Coreg 1.562 mg p.o. b.i.d. 5. Aspirin 81 mg a day. ALLERGIES: CIPRO AND TETRACYCLINE. DIET: Heart healthy. PENDING AT THE TIME OF DISCHARGE: Nothing. CODE STATUS: Full. HOSPITAL COURSE: The patient admitted to the hospital through [facility] Department with shortness of breath on admission. She had posterior rales. EKG showed no acute changes. Chest x-ray showed cardiomegaly and pulmonary vascular congestion. Laboratory otherwise normal. She was seen in consultation by Dr. Alon Montero, Cardiology. The patient refused ANILA inhibitors, ARBs, and Entresto. She was diuresed with IV Lasix. Her echocardiogram done approximately 2 months ago, EF 15% to 20%, grade 3/3 diastolic dysfunction. The patient has AICD. The patient improved during her hospital stay. She was found to have pyuria, urinary tract infection with pansensitive Escherichia coli. She was started on oral antibiotics. Vital signs are stable at the time of discharge. Chest is clear. Heart has a regular rate and rhythm. Her CBC was unremarkable on admission. She has chronic kidney disease stage 3 with creatinine is in the 1.4 to 1.5 range. Electrolytes have been otherwise unremarkable. She is being discharged to follow up with Dr. Liss Barrientos in 7 days. No procedures were done. Medications were changed. Prescriptions have been written. Job ID: [id number]
== END 2018-07-25 12:22 | disposition home or self-care (01) | DRG 291 ==
LOC: ERS 22:31 → 2NO 07-18 02:26
PROVIDERS: ADMIT Hospitalist; ATTEND Hospitalist
DX: I13.0 Hypertensive heart and chronic kidney disease with heart failure and stage 1 through stage 4 chronic kidney disease, or unspecified chronic kidney disease (principal); I50.43 Acute on chronic combined systolic (congestive) and diastolic (congestive) heart failure; I47.2 Ventricular tachycardia; N39.0 Urinary tract infection, site not specified; N18.3 Chronic kidney disease, stage 3 (moderate); I25.5 Ischemic cardiomyopathy; I25.10 Atherosclerotic heart disease of native coronary artery without angina pectoris; E78.5 Hyperlipidemia, unspecified; Z86.73 Personal history of transient ischemic attack (TIA), and cerebral infarction without residual deficits; Z95.5 Presence of coronary angioplasty implant and graft; E87.6 Hypokalemia; K59.00 Constipation, unspecified; I27.20 Pulmonary hypertension, unspecified; I34.0 Nonrheumatic mitral (valve) insufficiency; Z95.810 Presence of automatic (implantable) cardiac defibrillator; B96.20 Unspecified Escherichia coli [E. coli] as the cause of diseases classified elsewhere; Z91.14 Patient's other noncompliance with medication regimen; E66.9 Obesity, unspecified; Z68.30 Body mass index [BMI] 30.0-30.9, adult
CPT/HCPCS: 36415; 80048; 81015; 83735; 85014; 85018; 85025; 85049; 87077; 87086; 87186; 93798; 94760; 96374; J0696; J1650; J1940; J2405; J7050

== ENCOUNTER 2018-09-13 20:30 | Outpatient (CLI) | payer OTHER, MEDICARE | END 2018-09-13 20:31 | disposition home or self-care (01) | LOC: SLEEPLAB 20:30 | PROVIDERS: ATTEND Internal Medicine | DX: G47.33 Obstructive sleep apnea (adult) (pediatric) (principal); R53.83 Other fatigue; R51 Headache; R06.83 Snoring; R35.1 Nocturia; I11.0 Hypertensive heart disease with heart failure; I50.9 Heart failure, unspecified; I21.9 Acute myocardial infarction, unspecified; G47.00 Insomnia, unspecified; G47.10 Hypersomnia, unspecified; E66.9 Obesity, unspecified; Z68.31 Body mass index [BMI] 31.0-31.9, adult | CPT/HCPCS: 95811 ==

== ENCOUNTER 2018-10-08 20:30 | Outpatient (CLI) | payer MEDICARE | END 2018-10-08 20:31 | disposition home or self-care (01) | LOC: SLEEPLAB 20:30 | PROVIDERS: ATTEND Internal Medicine | DX: G47.33 Obstructive sleep apnea (adult) (pediatric) (principal); R51 Headache; R53.83 Other fatigue; R06.83 Snoring; R35.1 Nocturia; I11.0 Hypertensive heart disease with heart failure; I50.9 Heart failure, unspecified; I25.2 Old myocardial infarction; G47.31 Primary central sleep apnea; G47.61 Periodic limb movement disorder; I49.3 Ventricular premature depolarization; I47.2 Ventricular tachycardia | CPT/HCPCS: 95811 ==

== ENCOUNTER 2020-12-16 13:59 | Outpatient (CLI) | payer MEDICARE ==
[2020-12-16] MEDS ORDERED: Iopamidol 370 76% 100 ML VIAL ONE (14:58)
== END 2020-12-16 14:00 | disposition home or self-care (01) ==
LOC: BICCT 13:59
PROVIDERS: ATTEND Family Medicine
DX: R42 Dizziness and giddiness (principal)
CPT/HCPCS: 70496; 70498; 82565; Q9967

== ENCOUNTER 2023-06-22 10:02 | Emergency (ER) | payer MEDICARE ==
[2023-06-22 10:48] LABS: #Eosinphils 0.1 thou/uL (0.0-0.7); #Monocytes 0.5 thou/uL (0.11-0.59); %Basophils 0.3 % (0.0-1.0); %Eosinophils 0.8 % (0.0-10.0); %Lymphocytes 24.7 % (21.0-51.0); %Monocytes 6.8 % (0.0-10.0); %Neutrophils 67.1 % (42.0-75.0); Hematocrit 36.1 % (36.0-47.0); Hemoglobin 12.6 g/dL (12.0-16.0); Mean Corpuscular HGB CONC 34.9 g/dL (32.0-36.0); Mean Corpuscular Volume 94.5 fl (78.0-98.0); Mean Platelet Volume 8.9 fL (7.4-10.4); Platelet Count 231 10x3/uL (130-400); RBC Distribution Width 13.2 % (11.5-14.5); Red Blood Cell (RBC) Count 3.82 mill/uL (4.20-5.40); White Blood Cell (WBC) Count 7.5 10x3/uL (4.8-10.8)
[2023-06-22 11:15] LABS: ALT (SGPT) 14 U/L (8-55); AST (SGOT) 25 U/L (5-34); Albumin 4.1 g/dL (3.4-4.8); Alkaline Phosphatase 62 U/L (40-110); Anion Gap 14 mmol/L (10-20); BUN (Urea Nitrogen) 24 mg/dL (9.8-20.1); Bilirubin, Total 0.6 mg/dL (0.2-1.2); Calc. Creatinine Clearance 0 mL/min (70-130); Carbon Dioxide 25 mmol/L (23-31); Chloride 106 mmol/L (98-107); Estimated GFR 51; Globulin 2.9 g/dL (2.4-3.5); Glucose 93 mg/dL (83-110); Potassium 4.4 mmol/L (3.5-5.1); Sodium 141 mmol/L (136-145); Troponin I Less than 0.010 ng/mL (< 0.028)
== END 2023-06-22 19:43 | disposition home or self-care (01) ==
LOC: ERS 10:02
DX: T82.118A Breakdown (mechanical) of other cardiac electronic device, initial encounter (principal)
CPT/HCPCS: 71045; 80053; 84484; 85025; 93005

== ENCOUNTER 2024-07-23 11:26 | Inpatient (IN) | payer MEDICARE ==
[2024-07-23] MEDS ORDERED: Iopamidol-370 76% 500 ML MDV (1 ML CHARGE) ONE (11:49)
[2024-07-23 12:42] LABS: #Basophils 0.05 10x3/uL (0.0-0.2); %Basophils 0.6 % (0.0-1.0); %Monocytes 6.9 % (0.0-10.0); %Neutrophils 72.3 % (42.0-75.0); Hematocrit 39.9 % (36.0-47.0); Hemoglobin 13.6 g/dL (12.0-16.0); Mean Corpuscular HGB CONC 34.1 g/dL (32.0-36.0); Mean Corpuscular Hemoglobin 33.7 pg (27.0-31.0); Mean Corpuscular Volume 98.8 fL (78.0-98.0); Mean Platelet Volume 9.7 fL (7.4-10.4); Platelet Count 258 10x3/uL (130-400); RBC Distribution Width 14.2 % (11.5-14.5); Red Blood Cell (RBC) Count 4.04 mill/uL (4.20-5.40)
[2024-07-23 13:12] LABS: Troponin I Less than 0.010 ng/mL (< 0.028)
[2024-07-23] MEDS ORDERED: Furosemide 40 MG (4 mL) VIAL ONE (13:24)
[2024-07-23 14:47] LABS: ALT (SGPT) 23 U/L (8-55); AST (SGOT) 38 U/L (5-34); Albumin 3.9 g/dL (3.4-4.8); Alkaline Phosphatase 62 U/L (40-110); Anion Gap 15 mmol/L (10-20); BUN (Urea Nitrogen) 16 mg/dL (9.8-20.1); Calc. Creatinine Clearance 0 mL/min (70-130); Calcium 8.9 mg/dL (7.8-10.44); Carbon Dioxide 20 mmol/L (23-31); Chloride 108 mmol/L (98-107); Estimated GFR 68; Globulin 3.4 g/dL (2.4-3.5); Glucose 99 mg/dL (83-110); Potassium 3.4 mmol/L (3.5-5.1); Protein, Total 7.3 g/dL (5.8-8.1); Sodium 140 mmol/L (136-145)
[2024-07-23 17:03] VITALS: BMI 30.5
[2024-07-23] MEDS ORDERED: Acetaminophen 325 MG TAB PO PRN (18:08)
[2024-07-23] MEDS ORDERED: Ondansetron PF 4 MG/2 ML Vial IVP PRN (18:08)
[2024-07-23] MEDS ORDERED: Senokot S 8.6-50 MG TAB PO PRN (18:08)
[2024-07-23] MEDS ORDERED: Ondansetron ODT 4 MG TAB PO PRN (18:08)
[2024-07-23] MEDS ORDERED: Calcium Carbonate 500 MG ChewTAB PO PRN (18:08)
[2024-07-23] MEDS: Potassium Chloride 20 MEQ TAB PO SCH (20:50)
[2024-07-24 05:04] LABS: #Basophils 0.04 10x3/uL (0.0-0.2); %Basophils 0.6 % (0.0-1.0); %Lymphocytes 29.7 % (21.0-51.0); %Monocytes 10.5 % (0.0-10.0); %Neutrophils 57.1 % (42.0-75.0); Hematocrit 34.3 % (36.0-47.0); Mean Corpuscular Hemoglobin 33.7 pg (27.0-31.0); Mean Corpuscular Volume 96.3 fL (78.0-98.0); Mean Platelet Volume 9.6 fL (7.4-10.4); Platelet Count 240 10x3/uL (130-400); RBC Distribution Width 14.3 % (11.5-14.5); Red Blood Cell (RBC) Count 3.56 mill/uL (4.20-5.40)
[2024-07-24 05:13] LABS: Anion Gap 13 mmol/L (10-20); BUN (Urea Nitrogen) 20 mg/dL (9.8-20.1); Calc. Creatinine Clearance 51 mL/min (70-130); Calcium 8.6 mg/dL (7.8-10.44); Carbon Dioxide 24 mmol/L (23-31); Chloride 109 mmol/L (98-107); Estimated GFR 57; Glucose 105 mg/dL (83-110); Potassium 3.2 mmol/L (3.5-5.1); Sodium 143 mmol/L (136-145)
[2024-07-24] MEDS: Bumetanide 1 MG/4 ML VIAL IVP SCH (05:50)
[2024-07-24] MEDS ORDERED: Electrolyte Replacement Protocol 1 EACH FS PRN (06:00)
[2024-07-24] MEDS: Potassium Chloride 20 MEQ TAB PO SCH ×2 (06:09→10:53)
[2024-07-24] MEDS: Zinc Sulfate 220 MG CAP PO SCH (09:25)
[2024-07-24] MEDS: Enoxaparin 40 MG (0.4 mL) SYRINGE SC SCH (09:25)
[2024-07-24] MEDS: Ascorbic Acid 500 mg Chewable Tablet PO SCH (09:25)
[2024-07-24] MEDS: Multivitamin w/Zinc Stress 1 TAB PO SCH (09:25)
[2024-07-24] MEDS ORDERED: Electrolyte Replacement Protocol FS PRN (10:00)
[2024-07-24 12:06] VITALS: BMI 30.4
[2024-07-24] MEDS: Spironolactone 25 MG TAB PO SCH (16:05)
[2024-07-24 17:33] LABS: Potassium 4.5 mmol/L (3.5-5.1)
[2024-07-24] MEDS: Fish Oil 1,000 MG CAP PO SCH (21:04)
[2024-07-24] MEDS: Aspirin 81 mg Enteric Coated Tablet PO SCH (21:04)
[2024-07-24] MEDS: Rosuvastatin 5 MG TAB PO SCH (21:04)
[2024-07-25 09:30] LABS: #Basophils 0.04 10x3/uL (0.0-0.2); %Basophils 0.5 % (0.0-1.0); %Lymphocytes 21.7 % (21.0-51.0); %Monocytes 8.6 % (0.0-10.0); %Neutrophils 66.9 % (42.0-75.0); Hematocrit 37.4 % (36.0-47.0); Hemoglobin 12.6 g/dL (12.0-16.0); Mean Corpuscular HGB CONC 33.7 g/dL (32.0-36.0); Mean Corpuscular Hemoglobin 33.8 pg (27.0-31.0); Mean Corpuscular Volume 100.3 fL (78.0-98.0); Mean Platelet Volume 9.7 fL (7.4-10.4); Platelet Count 227 10x3/uL (130-400); RBC Distribution Width 14.3 % (11.5-14.5); Red Blood Cell (RBC) Count 3.73 mill/uL (4.20-5.40)
[2024-07-25 09:45] LABS: Anion Gap 16 mmol/L (10-20); BUN (Urea Nitrogen) 27 mg/dL (9.8-20.1); Calc. Creatinine Clearance 47 mL/min (70-130); Calcium 8.9 mg/dL (7.8-10.44); Carbon Dioxide 21 mmol/L (23-31); Chloride 109 mmol/L (98-107); Estimated GFR 51; Glucose 151 mg/dL (83-110); Sodium 142 mmol/L (136-145)
[2024-07-26 06:47] LABS: Anion Gap 16 mmol/L (10-20); BUN (Urea Nitrogen) 30 mg/dL (9.8-20.1); Calc. Creatinine Clearance 47 mL/min (70-130); Calcium 8.9 mg/dL (7.8-10.44); Carbon Dioxide 25 mmol/L (23-31); Chloride 105 mmol/L (98-107); Estimated GFR 51; Glucose 99 mg/dL (83-110); Sodium 142 mmol/L (136-145)
[2024-07-26] MEDS: Bumetanide 1 MG TAB PO SCH (15:54)
[2024-07-27] MEDS: Bumetanide 1 MG TAB PO SCH (10:00)
[2024-07-27 10:06] LABS: #Basophils 0.04 10x3/uL (0.0-0.2); %Basophils 0.5 % (0.0-1.0); %Eosinophils 1.6 % (0.0-10.0); %Lymphocytes 23.8 % (21.0-51.0); %Monocytes 9.5 % (0.0-10.0); %Neutrophils 64.3 % (42.0-75.0); Hematocrit 37.3 % (36.0-47.0); Mean Corpuscular HGB CONC 34.9 g/dL (32.0-36.0); Mean Corpuscular Hemoglobin 33.8 pg (27.0-31.0); Mean Corpuscular Volume 96.9 fL (78.0-98.0); Mean Platelet Volume 9.2 fL (7.4-10.4); Platelet Count 237 10x3/uL (130-400); RBC Distribution Width 13.9 % (11.5-14.5); Red Blood Cell (RBC) Count 3.85 mill/uL (4.20-5.40)
[2024-07-27 10:29] LABS: ALT (SGPT) 16 U/L (8-55); AST (SGOT) 26 U/L (5-34); Albumin 3.7 g/dL (3.4-4.8); Alkaline Phosphatase 61 U/L (40-110); Anion Gap 15 mmol/L (10-20); BUN (Urea Nitrogen) 33 mg/dL (9.8-20.1); Bilirubin, Total 0.5 mg/dL (0.2-1.2); Calc. Creatinine Clearance 44 mL/min (70-130); Calcium 9.1 mg/dL (7.8-10.44); Carbon Dioxide 24 mmol/L (23-31); Chloride 104 mmol/L (98-107); Estimated GFR 49; Globulin 3.4 g/dL (2.4-3.5); Glucose 110 mg/dL (83-110); Protein, Total 7.1 g/dL (5.8-8.1); Sodium 139 mmol/L (136-145)
[2024-07-28 15:36] VITALS: BP 100/76; TEMP 98
== END 2024-07-28 16:00 | disposition home or self-care (01) | DRG 291 ==
LOC: ERS 11:26 → ERHOLD 16:42 → 2NO 20:38
PROVIDERS: ADMIT Internal Medicine; ATTEND Internal Medicine
DX: I13.0 Hypertensive heart and chronic kidney disease with heart failure and stage 1 through stage 4 chronic kidney disease, or unspecified chronic kidney disease (principal); I50.23 Acute on chronic systolic (congestive) heart failure; N18.30 Chronic kidney disease, stage 3 unspecified; I25.2 Old myocardial infarction; I25.10 Atherosclerotic heart disease of native coronary artery without angina pectoris; E87.6 Hypokalemia; E78.5 Hyperlipidemia, unspecified; Z95.0 Presence of cardiac pacemaker; Z86.73 Personal history of transient ischemic attack (TIA), and cerebral infarction without residual deficits; Z95.5 Presence of coronary angioplasty implant and graft; Z96.653 Presence of artificial knee joint, bilateral; Z90.710 Acquired absence of both cervix and uterus; Z88.8 Allergy status to other drugs, medicaments and biological substances; Z79.82 Long term (current) use of aspirin; Z79.899 Other long term (current) drug therapy
CPT/HCPCS: 36415; 71046; 71275; 80048; 80053; 83880; 84484; 85025; 85379; 93005; 93306; 96374; J1650; J1940; J3490; Q9967